=== PATIENT | female | born 1955 | race Caucasian/White ===

== ENCOUNTER 2017-07-27 13:52 | Inpatient (IN) | payer OTHER ==
[2017-07-27] MEDS ORDERED: cefTRIAXone IN SWFI 1,000 MG/10 ML SYRINGE IVP STA (13:58)
[2017-07-27] MEDS ORDERED: AZITHROMYCIN 500 MG in SODIUM CHLORIDE 0.9% 250 ML IVPB STA (14:16)
--- NOTE | 2017-07-27 14:22 | ED ---
General Adult HPI - General Stated complaint: Fatigue Time Seen by Provider: 07/27/17 13:58 Source: patient, family (Daughter) Mode of arrival: EMS Limitations: no limitations - History of Present Illness Initial comments: Patient brought in by ambulance for fatigue. Patient lives at home alone, has a neighbor that checks on her regularly. Daughter bedside states neighbor encouraged her to come to the hospital last night, however patient refused. Today neighbor called EMS. EMS states they found patient lying in bed, soaked in her own urine. Patient appeared very fatigued, however was anal 4, without focal neuro deficits. EMS states patient had a bottle of amoxicillin at home, states recently treated for urinary tract infection. Patient denies any past medical history, denies any daily medications. Daughter bedside confirm she does not think patient is on daily medications. Patient complains of generalized fatigue, thirst. Patient denies any pain. Patient denies fevers, chills. Patient states she has not eaten in the past week. Has spent most of her time in bed over the past week. Patient admits to daily drinking approximately 6 beers a day, however states she has not drank any alcohol in the past 1 month. Patient is current smoker. Patient denies history of cardiac disease, history of A. fib. Per EMS patient's heart rate was 140-170, A. fib on EKG. Patient history limited by her fatigue, poor historian. Daughter at bedside states she does not see or talk to patient much, so she does not know her history well. - Related Data Home Medications Medication Instructions Recorded Confirmed Tolterodine Tartrate [Detrol LA] 2 mg PO DAILY 07/27/17 07/27/17 Vitamin B Complex 1 cap PO DAILY 07/27/17 07/27/17 Allergies Allergy/AdvReac Type Severity Reaction Status Date / Time No Known Allergies Allergy Verified 07/27/17 15:51 Review of Systems ROS Statement: Those systems with pertinent positive or pertinent negative responses have been documented in the HPI. ROS Other: All systems not noted in ROS Statement are negative. Constitutional: Reports: weakness (generalized). Denies: fever, chills Eyes: Denies: vision change ENT: Denies: ear pain, throat pain, congestion Respiratory: Reports: cough (nonproductive) Cardiovascular: Denies: chest pain, palpitations, edema, syncope Endocrine: Reports: fatigue, other (decreased urination) Gastrointestinal: Denies: abdominal pain, nausea, vomiting, diarrhea, constipation, melena Genitourinary: Reports: other (dec urination). Denies: urgency, dysuria, hematuria Skin: Denies: rash Neurological: Reports: weakness (generalized). Denies: headache, numbness, paresthesias, confusion General Exam - General Exam Comments Initial Comments: Patient laying in bed, appears fatigued, mildly ill. Alert, converses softly. General appearance: alert, in no apparent distress Head exam: Present: atraumatic, normocephalic Eye exam: Present: normal appearance, PERRL, EOMI ENT exam: Present: mucous membranes dry Neck exam: Present: normal inspection Respiratory exam: Present: rales, other (Course breath sounds bilaterally). Absent: respiratory distress, wheezes Cardiovascular Exam: Present: tachycardia, irregular rhythm GI/Abdominal exam: Present: soft. Absent: distended, tenderness, guarding, rebound, rigid Extremities exam: Present: normal inspection Back exam: Present: normal inspection Neurological exam: Present: alert, oriented X3, CN II-XII intact (Movements and sensation intact in all extremities. Patient is alert, oriented to name, month , living situation, date of ) Psychiatric exam: Present: normal affect, normal mood Skin exam: Present: warm, dry, intact, normal color. Absent: rash, cyanosis, erythema Course Vital Signs 07/27/17 07/27/17 07/27/17 14:05 14:13 14:15 Temperature 98.4 F Pulse Rate 166 H 144 H Pulse Rate [ 166 H [employer] ] Respiratory 98 H 16 Rate Blood Pressure 102/61 91/54 O2 Sat by Pulse 98 Oximetry 07/27/17 07/27/17 07/27/17 14:35 14:45 14:55 Temperature Pulse Rate 161 H 156 H 139 H Pulse Rate [ [employer] ] Respiratory 18 18 16 Rate Blood Pressure 94/59 88/57 89/52 O2 Sat by Pulse Oximetry 07/27/17 07/27/17 07/27/17 15:24 16:06 16:21 Temperature 98.7 F Pulse Rate 158 H 134 H 139 H Pulse Rate [ [employer] ] Respiratory 18 18 20 Rate Blood Pressure 93/55 84/53 81/51 O2 Sat by Pulse 91 L Oximetry Procedures - Central Line Placement Right IJ Consent Obtained: written consent Time Out Performed: Yes Patient Placed on Monitor/Pulse Ox: Yes MD Prep: mask, gown, gloves Central Line Prep: Povidone-Iodine 1% Local Anesthesia Used: Lidocaine 1% Ultrasound Used for Placement: Yes Central Line Lumen Inserted: triple Central Line Position: good blood return, all ports aspirated, flushed, capped, sutured in place with 3-0 nylon Dressing Applied: Tegaderm Post Procedure X-Ray: tip of catheter in good position Patient Tolerated Procedure: well Complications: none - Sepsis Sepsis Focused Exam #1 Time Sepsis Criteria Met: 16:15 Sepsis Focused Exam Complete: Yes Vital Signs & RN Notes Reviewed: Yes Capillary Refill: < 2 Seconds: Fingers, Toes Peripheral Pulses: Normal: Radial (R), Radial (L), Dorsalis Pedis (R), Dorsalis Pedis (L) Skin Color: Normal for Patient Respiratory Exam: rhonchi Cardiovascular Exam: tachycardia Medical Decision Making - Medical Decision Making Patient appears fatigued on arrival. Decreased oral intake recently. Complaining of thirst. Likely dehydration. Possible sepsis, this patient has history of possible recent urinary tract infection. Patient preflight really treated for UTI and possible community-acquired pneumonia given her cough. Patient tachycardic on arrival, low blood pressure, will continue with IV fluid boluses. We'll start Cardizem drip. Cardizem bolus held secondary to low blood pressure. The patient A&O x 4 on exam. Patient speech does appear fatigued, however is clear and appropriate. No focal neuro deficits appreciated on exam. Symmetrical facial movements, no facial droop. Patient denies falls or head trauma. No sign of trauma on exam. Daughter bedside does note patient is usually a heavy drinker, sometimes 6 large beers that were 10-12% ETOH each. States that if she doesn't drink beer then she drinks ice tea and vodka. Pt denies any drug use. Patient not tolerating Cardizem drip 2/2 lo, we'll continue with IV hydration. Patient with bilateral pneumonias on chest x-ray, sepsis protocol arty initiated , patient given azithromycin and Rocephin for possible [facility] pneumonia. Patient given 30 mL per KG fluid boluses, heart rate improved to 130s, however blood pressure remains [address] central line, start Levophed SPoke with intesivist Dr. De La Garza, updated patient condition results, agrees with ICU admission Spoke with admitting physician Dr. Wyatt, updated patient condition results, agrees with ICU admission, requests Zosyn antibiotics Patient daughter updated without results and plan. Central line placed without difficulty. Patient tolerated procedure well. Patient will be admitted to the intensive care unit at this time. . - Lab Data Result diagrams: 07/27/17 14:00 07/27/17 14:00 Lab Results 07/27/17 07/27/17 07/27/17 Range/Units 14:00 14:00 14:00 WBC 10.6 (3.8-10.6) k/uL RBC 4.99 (3.80-5.40) m/uL Hgb 16.6 H (11.4-16.0) gm/dL Hct 50.5 H (34.0-46.0) % MCV 101.2 H (80.0-100.0) fL MCH 33.3 (25.0-35.0) pg MCHC 32.9 (31.0-37.0) g/dL RDW 13.2 (11.5-15.5) % Plt Count 213 (150-450) k/uL Neutrophils % (Manual) 42 % Band Neutrophils % 53 % Lymphocytes % (Manual) 5 % Neutrophils # (Manual) 10.00 H (1.3-7.7) k/uL Lymphocytes # (Manual) 0.53 L (1.0-4.8) k/uL Nucleated RBCs 0 (0-0) /100 WBC Manual Slide Review Performed Toxic Granulation Present Toxic Vacuolation Present Large Platelets Present Polychromasia Present Macrocytosis Slight PT (9.0-12.0) sec INR (<1.2) APTT (22.0-30.0) sec Sodium 134 L (137-145) mmol/L Potassium 4.2 (3.5-5.1) mmol/L Chloride 91 L (98-107) mmol/L Carbon Dioxide 28 (22-30) mmol/L Anion Gap 15 mmol/L BUN 104 H* (7-17) mg/dL Creatinine 1.30 H (0.52-1.04) mg/dL Est GFR (MDRD) Af Amer 50 (>60 ml/min/1.73 sqM) Est GFR (MDRD) Non-Af 42 (>60 ml/min/1.73 sqM) Glucose 88 (74-99) mg/dL Plasma Lactic Acid Gasper 4.5 H* (0.7-2.0) mmol/L Calcium 9.3 (8.4-10.2) mg/dL Magnesium 2.3 (1.6-2.3) mg/dL Total Bilirubin 2.1 H (0.2-1.3) mg/dL AST 115 H (14-36) U/L ALT 39 (9-52) U/L Alkaline Phosphatase 63 (38-126) U/L Troponin I (0.000-0.034) ng/mL Total Protein 4.9 L (6.3-8.2) g/dL Albumin 2.5 L (3.5-5.0) g/dL Urine Color Urine Appearance (Clear) Urine pH (5.0-8.0) Ur Specific [place] (1.001-1.035) Urine Protein (Negative) Urine Glucose (UA) (Negative) Urine Ketones (Negative) Urine Blood (Negative) Urine Nitrite (Negative) Urine Bilirubin (Negative) Urine Urobilinogen (<2.0) mg/dL Ur Leukocyte Esterase (Negative) Urine RBC (0-5) /hpf Urine WBC (0-5) /hpf Ur Squamous Epith Cells (0-4) /hpf Amorphous Sediment (None) /hpf Hyaline Casts (0-2) /lpf Urine Mucus (None) /hpf Influenza Type A RNA (Not Detectd) Influenza Type B (PCR) (Not Detectd) 07/27/17 07/27/17 07/27/17 Range/Units 14:00 14:00 14:00 WBC (3.8-10.6) k/uL RBC (3.80-5.40) m/uL Hgb (11.4-16.0) gm/dL Hct (34.0-46.0) % MCV (80.0-100.0) fL MCH (25.0-35.0) pg MCHC (31.0-37.0) g/dL RDW (11.5-15.5) % Plt Count (150-450) k/uL Neutrophils % (Manual) % Band Neutrophils % % Lymphocytes % (Manual) % Neutrophils # (Manual) (1.3-7.7) k/uL Lymphocytes # (Manual) (1.0-4.8) k/uL Nucleated RBCs (0-0) /100 WBC Manual Slide Review Toxic Granulation Toxic Vacuolation Large Platelets Polychromasia Macrocytosis PT 10.1 (9.0-12.0) sec INR 1.0 (<1.2) APTT 22.8 (22.0-30.0) sec Sodium (137-145) mmol/L Potassium (3.5-5.1) mmol/L Chloride (98-107) mmol/L Carbon Dioxide (22-30) mmol/L Anion Gap mmol/L BUN (7-17) mg/dL Creatinine (0.52-1.04) mg/dL Est GFR (MDRD) Af Amer (>60 ml/min/1.73 sqM) Est GFR (MDRD) Non-Af (>60 ml/min/1.73 sqM) Glucose (74-99) mg/dL Plasma Lactic Acid Gas[place] (0.7-2.0) mmol/L Calcium (8.4-10.2) mg/dL Magnesium (1.6-2.3) mg/dL Total Bilirubin (0.2-1.3) mg/dL AST (14-36) U/L ALT (9-52) U/L Alkaline Phosphatase (38-126) U/L Troponin I 0.024 (0.000-0.034) ng/mL Total Protein (6.3-8.2) g/dL Albumin (3.5-5.0) g/dL Urine Color Dark Brown Urine Appearance Cloudy H (Clear) Urine pH 5.0 (5.0-8.0) Ur Specific [place] 1.017 (1.001-1.035) Urine Protein 1+ H (Negative) Urine Glucose (UA) Negative (Negative) Urine Ketones Negative (Negative) Urine Blood Negative (Negative) Urine Nitrite Negative (Negative) Urine Bilirubin 1+ H (Negative) Urine Urobilinogen 6.0 (<2.0) mg/dL Ur Leukocyte Esterase Negative (Negative) Urine RBC 1 (0-5) /hpf Urine WBC 2 (0-5) /hpf Ur Squamous Epith Cells 2 (0-4) /hpf Amorphous Sediment Rare H (None) /hpf Hyaline Casts 125 H (0-2) /lpf Urine Mucus Rare H (None) /hpf Influenza Type A RNA (Not Detectd) Influenza Type B (PCR) (Not Detectd) 07/27/17 Range/Units 14:20 WBC (3.8-10.6) k/uL RBC (3.80-5.40) m/uL Hgb (11.4-16.0) gm/dL Hct (34.0-46.0) % MCV (80.0-100.0) fL MCH (25.0-35.0) pg MCHC (31.0-37.0) g/dL RDW (11.5-15.5) % Plt Count (150-450) k/uL Neutrophils % (Manual) % Band Neutrophils % % Lymphocytes % (Manual) % Neutrophils # (Manual) (1.3-7.7) k/uL Lymphocytes # (Manual) (1.0-4.8) k/uL Nucleated RBCs (0-0) /100 WBC Manual Slide Review Toxic Granulation Toxic Vacuolation Large Platelets Polychromasia Macrocytosis PT (9.0-12.0) sec INR (<1.2) APTT (22.0-30.0) sec Sodium (137-145) mmol/L Potassium (3.5-5.1) mmol/L Chloride (98-107) mmol/L Carbon Dioxide (22-30) mmol/L Anion Gap mmol/L BUN (7-17) mg/dL Creatinine (0.52-1.04) mg/dL Est GFR (MDRD) Af Amer (>60 ml/min/1.73 sqM) Est GFR (MDRD) Non-Af (>60 ml/min/1.73 sqM) Glucose (74-99) mg/dL Plasma Lactic Acid Gasper (0.7-2.0) mmol/L Calcium (8.4-10.2) mg/dL Magnesium (1.6-2.3) mg/dL Total Bilirubin (0.2-1.3) mg/dL AST (14-36) U/L ALT (9-52) U/L Alkaline Phosphatase (38-126) U/L Troponin I (0.000-0.034) ng/mL Total Protein (6.3-8.2) g/dL Albumin (3.5-5.0) g/dL Urine Color Urine Appearance (Clear) Urine pH (5.0-8.0) Ur Specific [place] (1.001-1.035) Urine Protein (Negative) Urine Glucose (UA) (Negative) Urine Ketones (Negative) Urine Blood (Negative) Urine Nitrite (Negative) Urine Bilirubin (Negative) Urine Urobilinogen (<2.0) mg/dL Ur Leukocyte Esterase (Negative) Urine RBC (0-5) /hpf Urine WBC (0-5) /hpf Ur Squamous Epith Cells (0-4) /hpf Amorphous Sediment (None) /hpf Hyaline Casts (0-2) /lpf Urine Mucus (None) /hpf Influenza Type A RNA Not Detected (Not Detectd) Influenza Type B (PCR) Not Detected (Not Detectd) Disposition Clinical Impression: Septic shock Disposition: ADMITTED IP TO THIS HOSP Condition: Good Referrals: Sloan Guzman MD [Primary Care Provider] - 1-2 days
[2017-07-27] MEDS: SODIUM CHLORIDE 0.9% 500 ML IV SCH ×2 (14:25→14:26)
[2017-07-27] MEDS: DILTIAZEM 125 MG in SODIUM CHLORIDE 0.9% 100 ML IV ONE ×2 (14:34→19:50)
[2017-07-27 14:57] LABS: HCT 50.5 % (34.0-46.0); HGB 16.6 gm/dL (11.4-16.0); MCH 33.3 pg (25.0-35.0); MCHC 32.9 g/dL (31.0-37.0); MCV 101.2 fL (80.0-100.0); Macrocytosis Slight; Mean Platelet Volume 9.8; Platelet Count 213 k/uL (150-450); RBC 4.99 m/uL (3.80-5.40); RDW 13.2 % (11.5-15.5); WBC 10.6 k/uL (3.8-10.6)
[2017-07-27 14:59] LABS: Partial Thromboplastin Time 22.8 sec (22.0-30.0); Prothrombin Time 10.1 sec (9.0-12.0)
[2017-07-27 15:00] LABS: Amorphous Sediment,Urine Rare /hpf; Appearance,Urine Cloudy (Clear); Bilirubin,Urine 1+ (Negative); Blood,Urine Negative (Negative); Color,Urine Dark Brown; Glucose,Urine (UA) Negative (Negative); Hyaline Casts,Urine 125 /lpf (0-2); Ketones,Urine Negative (Negative); Leukocyte Esterase,Urine Negative (Negative); Mucus,Urine Rare /hpf; Nitrite,Urine Negative (Negative); Protein,Urine 1+ (Negative); RBC,Urine 1 /hpf (0-5); Specific Gravity,Urine 1.017 (1.001-1.035); Squamous Epithelial Cell,Urine 2 /hpf (0-4); WBC,Urine 2 /hpf (0-5)
[2017-07-27 15:02] LABS: Albumin 2.5 g/dL (3.5-5.0); Calcium 9.3 mg/dL (8.4-10.2); Magnesium 2.3 mg/dL (1.6-2.3); Potassium 4.2 mmol/L (3.5-5.1); Total Bilirubin 2.1 mg/dL (0.2-1.3); Total Protein 4.9 g/dL (6.3-8.2)
[2017-07-27 15:14] LABS: Band Neutrophils % 53 %; Large Platelets Present; Lymphocytes # (M) 0.53 k/uL (1.0-4.8); Neutrophils % (M) 42 %; Nucleated Red Blood Cells 0 /100 WBC (0-0); Polychromasia Present; Total Cells Counted 200; Toxic Granulation Present; Toxic Vacuolation Present
[2017-07-27] MEDS ORDERED: SODIUM CHLORIDE 0.9% 1,000 ML IV STA (15:17)
[2017-07-27] MEDS: SODIUM CHLORIDE 0.9% 1,000 ML IV STA ×3 (15:20→19:50)
--- NOTE | 2017-07-27 15:40 | XR ---
EXAMINATION TYPE: XR chest 1V portable DATE OF EXAM: 07/27/2017 COMPARISON: 05/28/2013 INDICATION: Fever weakness TECHNIQUE: Single frontal view of the chest is obtained. FINDINGS: The heart size is normal. The pulmonary vasculature is normal. Bibasilar infiltrates are present. Small posterior right infiltrate is present. A larger consolidatio n is within the lingula. Old right rib fractures are evident. IMPRESSION: 1. Bibasilar infiltrates within the lingula and posterior medial right lower lobe.
--- NOTE | 2017-07-27 15:41 | CT ---
EXAMINATION TYPE: CT brain wo con DATE OF EXAM: 07/27/2017 COMPARISON: 07/29/2012 INDICATION: Confusion and weakness. DLP: 1012.7 mGycm, Automated exposure control for dose reduction was used. CONTRAST: None CT of the brain is performed utilizing 3 mm thick sections through the posterior fossa and 3 mm thick sections through the remaining calvarium. Study is performed within 24 hours of arrival to the hosp ital. No abnormal hyperdensity is present to suggest an acute intracranial hemorrhage. No mass lesion is evident. No acute infarcts are evident. Periventricular white matter hypodensity is present, likely on the bas is of confluent white matter ischemic type changes. Ventricles are mildly prominent for the patient age. Sulci appear appropriate for the patient age. N o hydrocephalus is evident. Paranasal sinuses and mastoid air cells within the [id number] are clear. IMPRESSIONS: 1. Periventricular white matter ischemic changes and mild atrophy.
[2017-07-27] MEDS ORDERED: HEPARIN SODIUM,PORCINE 5,000 UNIT/ML 1 ML VIAL IV STA (16:02)
[2017-07-27] MEDS ORDERED: PIPERACILLIN-TAZOBACTAM 3.375 GM in DEXTROSE/WATER 1 50ML.BAG IVPB STA (17:01)
[2017-07-27] MEDS: NOREPINEPHRIN 4 MG-0.9% NS PMX 4 MG/250 ML ML IV SCH ×2 (17:27→19:49)
[2017-07-27] MEDS: HEPARIN SOD,PORK IN 0.45% NACL 25,000 UNIT in 0.45% NACL 1 500ML.BAG IV SCH ×2 (17:30→19:48)
[2017-07-27] MEDS ORDERED: ETOMIDATE 2 MG/ML 10 ML VIAL IVP STA (17:59)
[2017-07-27 18:07] LABS: ABG Base Excess -5.8 mmol/L; ABG HCO3 23 mmol/L (21-25); ABG Oxygen Saturation 79.9 % (94-97); ABG PCO2 69 mmHg (35-45); ABG PO2 59 mmHg (83-108); ABG TCO2 25 mmol/L (19-24)
--- NOTE | 2017-07-27 18:08 | ED ---
Medical Decision Making - Lab Data Result diagrams: 07/27/17 14:00 07/27/17 14:00 Lab Results 07/27/17 07/27/17 07/27/17 Range/Units 14:00 14:00 14:00 WBC 10.6 (3.8-10.6) k/uL RBC 4.99 (3.80-5.40) m/uL Hgb 16.6 H (11.4-16.0) gm/dL Hct 50.5 H (34.0-46.0) % MCV 101.2 H (80.0-100.0) fL MCH 33.3 (25.0-35.0) pg MCHC 32.9 (31.0-37.0) g/dL RDW 13.2 (11.5-15.5) % Plt Count 213 (150-450) k/uL Neutrophils % (Manual) 42 % Band Neutrophils % 53 % Lymphocytes % (Manual) 5 % Neutrophils # (Manual) 10.00 H (1.3-7.7) k/uL Lymphocytes # (Manual) 0.53 L (1.0-4.8) k/uL Nucleated RBCs 0 (0-0) /100 WBC Manual Slide Review Performed Toxic Granulation Present Toxic Vacuolation Present Large Platelets Present Polychromasia Present Macrocytosis Slight PT (9.0-12.0) sec INR (<1.2) APTT (22.0-30.0) sec Sodium 134 L (137-145) mmol/L Potassium 4.2 (3.5-5.1) mmol/L Chloride 91 L (98-107) mmol/L Carbon Dioxide 28 (22-30) mmol/L Anion Gap 15 mmol/L BUN 104 H* (7-17) mg/dL Creatinine 1.30 H (0.52-1.04) mg/dL Est GFR (MDRD) Af Amer 50 (>60 ml/min/1.73 sqM) Est GFR (MDRD) Non-Af 42 (>60 ml/min/1.73 sqM) Glucose 88 (74-99) mg/dL Plasma Lactic Acid Gasper 4.5 H* (0.7-2.0) mmol/L Calcium 9.3 (8.4-10.2) mg/dL Magnesium 2.3 (1.6-2.3) mg/dL Total Bilirubin 2.1 H (0.2-1.3) mg/dL AST 115 H (14-36) U/L ALT 39 (9-52) U/L Alkaline Phosphatase 63 (38-126) U/L Troponin I (0.000-0.034) ng/mL Total Protein 4.9 L (6.3-8.2) g/dL Albumin 2.5 L (3.5-5.0) g/dL Urine Color Urine Appearance (Clear) Urine pH (5.0-8.0) Ur Specific [place] (1.001-1.035) Urine Protein (Negative) Urine Glucose (UA) (Negative) Urine Ketones (Negative) Urine Blood (Negative) Urine Nitrite (Negative) Urine Bilirubin (Negative) Urine Urobilinogen (<2.0) mg/dL Ur Leukocyte Esterase (Negative) Urine RBC (0-5) /hpf Urine WBC (0-5) /hpf Ur Squamous Epith Cells (0-4) /hpf Amorphous Sediment (None) /hpf Hyaline Casts (0-2) /lpf Urine Mucus (None) /hpf Influenza Type A RNA (Not Detectd) Influenza Type B (PCR) (Not Detectd) 07/27/17 07/27/17 07/27/17 Range/Units 14:00 14:00 14:00 WBC (3.8-10.6) k/uL RBC (3.80-5.40) m/uL Hgb (11.4-16.0) gm/dL Hct (34.0-46.0) % MCV (80.0-100.0) fL MCH (25.0-35.0) pg MCHC (31.0-37.0) g/dL RDW (11.5-15.5) % Plt Count (150-450) k/uL Neutrophils % (Manual) % Band Neutrophils % % Lymphocytes % (Manual) % Neutrophils # (Manual) (1.3-7.7) k/uL Lymphocytes # (Manual) (1.0-4.8) k/uL Nucleated RBCs (0-0) /100 WBC Manual Slide Review Toxic Granulation Toxic Vacuolation Large Platelets Polychromasia Macrocytosis PT 10.1 (9.0-12.0) sec INR 1.0 (<1.2) APTT 22.8 (22.0-30.0) sec Sodium (137-145) mmol/L Potassium (3.5-5.1) mmol/L Chloride (98-107) mmol/L Carbon Dioxide (22-30) mmol/L Anion Gap mmol/L BUN (7-17) mg/dL Creatinine (0.52-1.04) mg/dL Est GFR (MDRD) Af Amer (>60 ml/min/1.73 sqM) Est GFR (MDRD) Non-Af (>60 ml/min/1.73 sqM) Glucose (74-99) mg/dL Plasma Lactic Acid Gasper (0.7-2.0) mmol/L Calcium (8.4-10.2) mg/dL Magnesium (1.6-2.3) mg/dL Total Bilirubin (0.2-1.3) mg/dL AST (14-36) U/L ALT (9-52) U/L Alkaline Phosphatase (38-126) U/L Troponin I 0.024 (0.000-0.034) ng/mL Total Protein (6.3-8.2) g/dL Albumin (3.5-5.0) g/dL Urine Color Dark Brown Urine Appearance Cloudy H (Clear) Urine pH 5.0 (5.0-8.0) Ur Specific [place] 1.017 (1.001-1.035) Urine Protein 1+ H (Negative) Urine Glucose (UA) Negative (Negative) Urine Ketones Negative (Negative) Urine Blood Negative (Negative) Urine Nitrite Negative (Negative) Urine Bilirubin 1+ H (Negative) Urine Urobilinogen 6.0 (<2.0) mg/dL Ur Leukocyte Esterase Negative (Negative) Urine RBC 1 (0-5) /hpf Urine WBC 2 (0-5) /hpf Ur Squamous Epith Cells 2 (0-4) /hpf Amorphous Sediment Rare H (None) /hpf Hyaline Casts 125 H (0-2) /lpf Urine Mucus Rare H (None) /hpf Influenza Type A RNA (Not Detectd) Influenza Type B (PCR) (Not Detectd) 07/27/17 Range/Units 14:20 WBC (3.8-10.6) k/uL RBC (3.80-5.40) m/uL Hgb (11.4-16.0) gm/dL Hct (34.0-46.0) % MCV (80.0-100.0) fL MCH (25.0-35.0) pg MCHC (31.0-37.0) g/dL RDW (11.5-15.5) % Plt Count (150-450) k/uL Neutrophils % (Manual) % Band Neutrophils % % Lymphocytes % (Manual) % Neutrophils # (Manual) (1.3-7.7) k/uL Lymphocytes # (Manual) (1.0-4.8) k/uL Nucleated RBCs (0-0) /100 WBC Manual Slide Review Toxic Granulation Toxic Vacuolation Large Platelets Polychromasia Macrocytosis PT (9.0-12.0) sec INR (<1.2) APTT (22.0-30.0) sec Sodium (137-145) mmol/L Potassium (3.5-5.1) mmol/L Chloride (98-107) mmol/L Carbon Dioxide (22-30) mmol/L Anion Gap mmol/L BUN (7-17) mg/dL Creatinine (0.52-1.04) mg/dL Est GFR (MDRD) Af Amer (>60 ml/min/1.73 sqM) Est GFR (MDRD) Non-Af (>60 ml/min/1.73 sqM) Glucose (74-99) mg/dL Plasma Lactic Acid [place] (0.7-2.0) mmol/L Calcium (8.4-10.2) mg/dL Magnesium (1.6-2.3) mg/dL Total Bilirubin (0.2-1.3) mg/dL AST (14-36) U/L ALT (9-52) U/L Alkaline Phosphatase (38-126) U/L Troponin I (0.000-0.034) ng/mL Total Protein (6.3-8.2) g/dL Albumin (3.5-5.0) g/dL Urine Color Urine Appearance (Clear) Urine pH (5.0-8.0) Ur Specific [place] (1.001-1.035) Urine Protein (Negative) Urine Glucose (UA) (Negative) Urine Ketones (Negative) Urine Blood (Negative) Urine Nitrite (Negative) Urine Bilirubin (Negative) Urine Urobilinogen (<2.0) mg/dL Ur Leukocyte Esterase (Negative) Urine RBC (0-5) /hpf Urine WBC (0-5) /hpf Ur Squamous Epith Cells (0-4) /hpf Amorphous Sediment (None) /hpf Hyaline Casts (0-2) /lpf Urine Mucus (None) /hpf Influenza Type A RNA Not Detected (Not Detectd) Influenza Type B (PCR) Not Detected (Not Detectd) Disposition Clinical Impression: Septic shock Disposition: ADMITTED IP TO THIS [facility] Condition: Good Procedures - Intubation Time Out Performed: Yes Sedative: Etomidate Paralytic: Succinylcholine Laryngoscope: Ngozi Size: 4 ET Tube Size: 8 ET Tube Uncuffed: No Tube Secured Depth (cm): 23 Tube Secured Location: lips Tube Placement Confirmation: visualized tube passing through cords, equal breath sounds bilaterally, no breath sounds over epigastrium Patient Tolerated Procedure: well Intubation Complications: none - Sepsis Sepsis Focused Exam #1 Time Sepsis Criteria Met: 16:15
[2017-07-27 18:09] LABS: ABG PH 7.13 (7.35-7.45)
[2017-07-27] MEDS ORDERED: SUCCINYLCHOLINE CHLORIDE VIAL 200 MG/10 ML VIAL IV STA (19:00)
--- NOTE | 2017-07-27 19:11 | XR ---
EXAMINATION TYPE: XR chest 1V portable DATE OF EXAM: 07/27/2017 COMPARISON: Same date earlier exam INDICATION: Pain ET NG tube placement, patient and sepsis, volume overload TECHNIQUE: Single frontal view of the chest is obtained. FINDINGS: The heart size is normal. The pulmonary vasculature is normal. Left lower lobe and right lower lobe infiltrates are increasing from prior. No pleural effusion is ev ident. Patient Central venous catheter is stable. Endotracheal tube is in place the tip in the proximal right bronchus. In conversation with the emerge ncy room physician, this was pulled back approximately 3 to 4 cm. Nasogastric tube transverses the th orax, tip is in the left upper quadrant of the abdomen. IMPRESSION: 1. Endotracheal tube tip within the proximal right bronchus. This was pulled back following this imag e. 2. Nasogastric tube tip within the left upper quadrant of the abdomen. 3. Worsening bibasilar infiltrates.
[2017-07-27] MEDS ORDERED: PROPOFOL 100 ML IV ONE (19:28)
[2017-07-27 19:40] LABS: Glucose,Whole Blood 60 mg/dL (75-99)
[2017-07-27] MEDS ORDERED: DEXTROSE 50%-WATER 50 ML SYRINGE IVP ONE (19:43)
--- NOTE | 2017-07-27 19:53 | XR ---
EXAMINATION TYPE: XR chest 1V DATE OF EXAM: 07/27/2017 COMPARISON: NONE INDICATION: ET tube placement, adjustment, septic shock TECHNIQUE: Single frontal view of the chest is obtained. FINDINGS: The heart size is normal. The pulmonary vasculature is normal. Left mid and lower lobe consolidation appears somewhat denser. The right lower lobe consolidation is similar. The endotracheal tube is been pulled back with the tip approximately 2.3 cm above the kandi. This ca n come back somewhat further as well. The central venous catheter tip within the superior vena cava r egion is stable. The nasogastric tube tip is in the left upper quadrant of the abdomen. IMPRESSION: 1. Dense infiltrates within the left lower lobe and medial right lower lobe. 2. Endotracheal tube is been pulled back. This is at the lower extent of acceptable positioning and c an be pulled back 2 cm for adjustment.
[2017-07-27 20:15] LABS: Glucose,Whole Blood 105 mg/dL (75-99)
[2017-07-27 20:42] LABS: ABG Base Excess -8.2 mmol/L; ABG HCO3 21 mmol/L (21-25); ABG Oxygen Saturation 90.9 % (94-97); ABG PCO2 58 mmHg (35-45); ABG PO2 82 mmHg (83-108); ABG TCO2 22 mmol/L (19-24)
[2017-07-27 20:46] LABS: ABG PH 7.16 (7.35-7.45)
--- NOTE | 2017-07-27 21:15 | XR ---
EXAMINATION TYPE: XR chest 1V portable DATE OF EXAM: 07/27/2017 COMPARISON: NONE INDICATION: Pain Central line placement TECHNIQUE: Single frontal view of the chest is obtained. FINDINGS: The heart size is normal. The pulmonary vasculature is normal. There is worsening infiltrate through the left lung. There is insertion of a right central venous catheter with the tip in the superior vena cava region. No pneumothorax is evident. EKG leads overlie the chest. Right lower lobe infiltrate remains present. Note is made of a chronic rotator cuff tear on the right. There is likely a chronic rotator cuff tear on the left as well. IMPRESSION: 1. Worsening bibasilar infiltrates extending into the left upper lung field. 2. Right central venous catheter tip in the superior vena cava region. No pneumothorax is evident.
[2017-07-27] MEDS ORDERED: NALOXONE 0.4 MG/ML 1 ML VIAL IV PRN (21:51)
[2017-07-27] MEDS ORDERED: SODIUM CHLORIDE 0.9% 1,000 ML IV ONE (21:59)
[2017-07-27] MEDS: fentaNYL (PF) 2,500 MCG in SODIUM CHLORIDE 0.9% 200 ML IV SCH (21:59)
[2017-07-27] MEDS: SODIUM CHLORIDE 0.9% 1,000 ML IV SCH ×2 (22:03→23:39)
[2017-07-27] MEDS: PROPOFOL 1,000 MG in EMPTY BAG 1 BAG IV SCH (22:04)
[2017-07-27 22:19] VITALS: BMI 18.6
[2017-07-27] MEDS ORDERED: SODIUM CHLORIDE 0.9% 1,000 ML with MVI, ADULT NO.4 WITH VIT K 10 ML, THIAMINE 100 MG, F... IV ONE ×4 (22:58)
[2017-07-27] MEDS: NOREPINEPHRIN 16 MG-0.9%NS PMX 16 MG/250 ML ML IV SCH (23:39)
[2017-07-28] MEDS: DILTIAZEM 125 MG in SODIUM CHLORIDE 0.9% 100 ML IV ONE (01:01)
[2017-07-28 02:22] LABS: ABG Base Excess -12.1 mmol/L; ABG HCO3 17 mmol/L (21-25); ABG Oxygen Saturation 90.1 % (94-97); ABG PCO2 53 mmHg (35-45); ABG PO2 75 mmHg (83-108); ABG TCO2 19 mmol/L (19-24)
[2017-07-28 02:30] LABS: ABG PH 7.12 (7.35-7.45)
[2017-07-28] MEDS: DEXTROSE 5%-0.45% NACL 1,000 ML with SODIUM BICARB (1 MEQ/ML) 150 ML IV SCH ×6 (03:19→22:49)
[2017-07-28] MEDS: SODIUM CHLORIDE 0.9% 1,000 ML IV SCH ×4 (03:20→03:31)
[2017-07-28] MEDS: SODIUM CHLORIDE 0.9% 99 ML with VASOPRESSIN 20 UNIT IV SCH ×6 (03:29→21:30)
[2017-07-28 04:36] LABS: HCT 45.9 % (34.0-46.0); HGB 13.8 gm/dL (11.4-16.0); Hypochromasia Slight; MCH 32.5 pg (25.0-35.0); MCHC 30.1 g/dL (31.0-37.0); Macrocytosis Moderate; Mean Platelet Volume 9.7; Platelet Count 138 k/uL (150-450); RBC 4.26 m/uL (3.80-5.40); RDW 13.4 % (11.5-15.5)
[2017-07-28 04:37] LABS: MCV 107.7 fL (80.0-100.0)
[2017-07-28 04:49] LABS: Band Neutrophils % 58 %; INR 1.1 (<1.2); Monocytes # (M) 0.14 k/uL (0-1.0); Neutrophils % (M) 36 %; Nucleated Red Blood Cells 2 /100 WBC (0-0); Partial Thromboplastin Time 30.4 sec (22.0-30.0); Prothrombin Time 10.5 sec (9.0-12.0); Total Cells Counted 100
[2017-07-28 04:50] LABS: Lymphocytes # (M) 0.71 k/uL (1.0-4.8); WBC 14.1 k/uL (3.8-10.6)
[2017-07-28 05:02] LABS: Albumin 1.4 g/dL (3.5-5.0); Magnesium 1.7 mg/dL (1.6-2.3); Phosphorus 3.7 mg/dL (2.5-4.5); Potassium 3.7 mmol/L (3.5-5.1); Total Bilirubin 0.8 mg/dL (0.2-1.3); Total Protein 3.1 g/dL (6.3-8.2)
[2017-07-28 05:07] LABS: Calcium 5.9 mg/dL (8.4-10.2)
--- NOTE | 2017-07-28 07:35 | XR ---
EXAMINATION TYPE: XR chest 1V portable DATE OF EXAM: 07/28/2017 Comparison: 07/27/2017 Clinical History: 62-year-old female Tube placement Findings: Heart margins are obscured by adjacent pleural parenchymal opacities. ET tube satisfactory. NG tube c ourses below the diaphragm. Right IJ CVC tip in lower SVC. Dense left mid and lower lung opacities an d right basilar opacities persist. Densities are worsened from prior exam. Small effusions also suspe cted. Impression: Worsening left greater than right bibasilar consolidation and effusions. Infiltrates on the left exte nd up to the mid lung level.
[2017-07-28] MEDS ORDERED: HEPARIN SODIUM,PORCINE 5,000 UNIT/ML 1 ML VIAL IV PRN (07:56)
[2017-07-28] MEDS ORDERED: HEPARIN SODIUM,PORCINE 5,000 UNIT/ML 1 ML VIAL IV ONE (07:56)
[2017-07-28] MEDS ORDERED: POTASSIUM CHLORIDE ORAL LIQUID 40 MEQ/30 ML CUP NG-TUBE SCH (08:00)
[2017-07-28 08:41] LABS: Amphetamine Screen,Urine Not Detected (NotDetected); Barbiturate Screen,Urine Not Detected (NotDetected); Benzodiazepines Screen,Urine Not Detected (NotDetected); Cocaine Screen,Urine Not Detected (NotDetected); Methadone Screen, Urine Not Detected (NotDetected); Opiate Screen,Urine Not Detected (NotDetected); Oxycodone Screen, Urine Not Detected (NotDetected); Phencyclidine Screen,Urine Not Detected (NotDetected); Tricyclic Antidepressant,Urine Not Detected (NotDetected); Urn Cannabinoid Scrn Detected (NotDetected)
[2017-07-28] MEDS: PANTOPRAZOLE 40 MG/10 ML VIAL IV SCH (08:50)
[2017-07-28] MEDS: CHLORHEXIDINE GLUCONATE 15 ML CUP MUCOUS MEM SCH ×2 (08:50→21:27)
[2017-07-28] MEDS: CALCIUM GLUCONATE 1,000 MG in SODIUM CHLORIDE 0.9% 100 ML IVPB SCH ×2 (08:52→21:27)
[2017-07-28] MEDS: MAGNESIUM SULFATE-D5W PMX 1 GM in DEXTROSE/WATER 1 100ML.BAG IVPB SCH ×2 (08:52→10:08)
[2017-07-28 09:16] LABS: ABG Base Excess -12.7 mmol/L; ABG HCO3 17 mmol/L (21-25); ABG Oxygen Saturation 93.4 % (94-97); ABG PCO2 55 mmHg (35-45); ABG PO2 76 mmHg (83-108); ABG TCO2 19 mmol/L (19-24)
--- NOTE | 2017-07-28 10:00 | ECHOF ---
Referral Reason:afib rvr MEASUREMENTS -------- HEIGHT: 170.2 cm WEIGHT: 53.5 kg BP: 89/57 IVSd: 1.1 cm (0.6 - 1.1) LVIDd: 2.2 cm (3.9 - 5.3) LVPWd: 1.2 cm (0.6 - 1.1) IVSs: 1.6 cm LVIDs: 1.2 cm LVPWs: 1.7 cm LAESV Index (A-L): 20.26 ml/m Ao Diam: 3.2 cm (2.0 - 3.7) AV Cusp: 1.9 cm (1.5 - 2.6) LA Diam: 3.9 cm (2.7 - 3.8) MV EXCURSION: 20.043 mm (> 18.000) MV EF SLOPE: 204 mm/s (70 - 150) EPSS: 0.3 cm RAP: 20.00 mmHg RVSP: 49.52 mmHg FINDINGS -------- Atrial fibrillation. This was a technically good study. The left ventricular size is normal. There is borderline concentric left ventricular hypertrophy. Overall left ventricular systolic function is normal with, an EF between 55 - 60 %. The right ventricle is normal in size and function. The left atrium is normal in size. The right atrium is normal in size. Aortic valve is trileaflet and is mildly thickened. The mitral valve leaflets are mildly thickened. Mild mitral regurgitation is present. Moderate to severe tricuspid regurgitation present. There is mild to moderate pulmonary hypertensio n. The right ventricular systolic pressure, as measured by Doppler, is 49.52mmHg. There is no pulmonic regurgitation present. The aortic root size is normal. The inferior vena cava is dilated with no significant inspiratory collapse which is consistent estima julissa right atrial pressure of >20 mmHg. There is a trivial pericardial effusion present. CONCLUSIONS -------- 1. Atrial fibrillation. 2. This was a technically good study. 3. The left ventricular size is normal. 4. There is borderline concentric left ventricular hypertrophy. 5. Overall left ventricular systolic function is normal with, an EF between 55 - 60 %. 6. The left atrium is normal in size. 7. Aortic valve is trileaflet and is mildly thickened. 8. The mitral valve leaflets are mildly thickened. 9. Mild mitral regurgitation is present. 10. Moderate to severe tricuspid regurgitation present. 11. There is mild to moderate pulmonary hypertension. 12. The right ventricular systolic pressure, as measured by Doppler, is 49.52mmHg. 13. There is no pulmonic regurgitation present. 14. The aortic root size is normal. 15. The inferior vena cava is dilated with no significant inspiratory collapse which is consistent es timated right atrial pressure of >20 mmHg. 16. There is a trivial pericardial effusion present. SEEING EYE DOG TEACHER: Rocio Coronel RDCS
--- NOTE | 2017-07-28 10:31 | P.CNPUL ---
History of Present Illness Consult date: 07/28/17 Reason for consult: other Chief complaint: Mental status changes, respiratory failure, sepsis, chronic liver disease History of present illness: Consult dated 07/28/2017 This is a 62-year-old female who was apparently evaluated in the emergency room. The patient apparently is a heavy drinker is been drinking up until the time of admission. EMS was called. The patient was lying in bed soaked in her own urine. She apparently was very weak and fatigue. The patient apparently was recently treated for urinary tract infection at home with amoxicillin. The patient had empty alcohol bottles strength throughout the house. Anyway, she was being admitted to the ICU because of her alcohol abuse and possible sepsis with possible pneumonia and new onset atrial fibrillation. Subsequent to be talking to the ER doctor, the patient apparently developed agonal respirations and was intubated. I do nothing about that. The patient was since then up into the ICU. I was supposed notify the patient was in the ICU on the ventilator by Bart, the nighttime nurse. Needless to say I was upset about this and I did call the ER doctor to let him know that this should never happened. He apologized. We moved on. Anyway, currently the patient's in dire straits. I did have a long conversation with the family. I spent more than 40 minutes with this family and patient thus far. The patient's currently on the assist control mode with a rate of 26 a tidal volume of 350 and FiO2 of 100% and PEEP of 5. Arterial blood gases show a PaO2 of 76 a PaCO2 of 55 and a pH of 7.10. The patient's on a dextrose IV with 3 amps of sodium bicarbonate at 1 25 mL an hour, norepinephrine, and 50 mcg/m, vasopressin at 0.03 units per minute, heparin via weightbase protocol for the atrial fibrillation propofol at 10 mics per kilogram per minute and MVI at 100 mL an hour. After talking to the daughter Rae, who is a nurse at [employer], they want to give the patient a bit more time. Apparently some outside family members have to come in. Review of Systems ROS unobtainable: due to endotracheal tube Past Medical History Past Medical History: No Reported History Additional Past Medical History / Comment(s): Arthritis History of Any Multi-Drug Resistant Organisms: None Reported Additional Past Surgical History / Comment(s): Lt fx Past Anesthesia/Blood Transfusion Reactions: No Reported Reaction Past Psychological History: No Psychological Hx Reported Smoking Status: Current every day smoker Past Alcohol Use History: Heavy Past Drug Use History: None Reported Medications and Allergies Home Medications Medication Instructions Recorded Confirmed Type Tolterodine Tartrate [Detrol LA] 2 mg PO DAILY 07/27/17 07/27/17 History Vitamin B Complex 1 cap PO DAILY 07/27/17 07/27/17 History Allergies Allergy/AdvReac Type Severity Reaction Status Date / Time No Known Allergies Allergy Verified 07/27/17 15:51 Physical Exam Osteopathic Statement: *. No significant issues noted on an osteopathic structural exam other than those noted in the History and Physical/Consult. Vitals: Vital Signs Temp Pulse Pulse Resp BP Pulse Ox 07/28/17 09:45 160 H 26 H 96/65 90 L 07/28/17 09:30 132 H 26 H 96/65 79 L 07/28/17 09:15 142 H 26 H 96/65 80 L 07/28/17 09:00 155 H 27 H 96/65 84 L 07/28/17 08:45 136 H 27 H 96/65 78 L 07/28/17 08:30 146 H 26 H 96/65 78 L 07/28/17 08:15 137 H 26 H 96/65 77 L 07/28/17 08:00 102 F H 146 H 28 H 96/65 79 L 07/28/17 07:45 159 H 30 H 112/82 76 L 07/28/17 07:30 134 H 26 H 112/82 74 L 07/28/17 07:15 152 H 29 H 106/71 77 L 07/28/17 07:00 137 H 28 H 109/72 90 L 07/28/17 06:45 137 H 27 H 110/59 90 L 07/28/17 06:30 127 H 38 H 119/74 90 L 07/28/17 06:15 139 H 31 H 126/67 95 07/28/17 06:00 139 H 30 H 112/94 90 L 07/28/17 05:45 127 H 30 H 114/75 98 07/28/17 05:30 142 H 31 H 126/67 92 L 07/28/17 05:15 133 H 38 H 120/75 91 L 07/28/17 05:00 8 L 33 H 110/76 89 L 07/28/17 04:45 56 L 31 H 95/78 91 L 07/28/17 04:30 78 28 H 96/65 92 L 07/28/17 04:15 121 H 35 H 109/68 92 L 07/28/17 04:00 100 F H 102 H 104 H 31 H 109/67 92 L 07/28/17 03:45 126 H 31 H 108/56 92 L 07/28/17 03:30 100 29 H 107/55 93 L 07/28/17 03:15 134 H 26 H 92/63 93 L 07/28/17 03:00 113 H 26 H 87/58 93 L 07/28/17 02:45 115 H 33 H 104/52 93 L 07/28/17 02:30 115 H 37 H 93/62 88 L 07/28/17 02:15 94 32 H 92/51 87 L 07/28/17 02:00 97 28 H 87/50 88 L 07/28/17 01:45 55 L 28 H 83/49 89 L 07/28/17 01:30 98 33 H 90/54 88 L 07/28/17 01:15 115 H 25 H 90/53 89 L 07/28/17 01:00 111 H 31 H 96/53 90 L 07/28/17 00:45 98 30 H 82/50 91 L 07/28/17 00:30 109 H 30 H 86/58 91 L 07/28/17 00:15 108 H 27 H 96/57 91 L 07/28/17 00:00 98.4 F 110 H 104 H 22 90/41 92 L 07/27/17 23:45 111 H 22 95/54 94 L 07/27/17 23:30 118 H 22 86/52 94 L 07/27/17 23:15 96 22 94/87 94 L 07/27/17 23:00 103 H 22 92/51 97 07/27/17 22:45 101 H 22 82/60 97 07/27/17 22:30 120 H 22 93/45 97 07/27/17 22:15 113 H 22 87/46 96 07/27/17 22:00 98 22 93/53 92 L 07/27/17 21:45 115 H 22 81/47 97 07/27/17 21:30 116 H 22 83/51 97 07/27/17 21:15 118 H 22 87/49 96 07/27/17 21:00 114 H 22 82/54 97 07/27/17 20:45 121 H 17 92/50 93 L 07/27/17 20:44 113 H 20 92/50 92 L 07/27/17 20:30 125 H 21 88/46 92 L 07/27/17 20:15 138 H 27 H 82/51 94 L 07/27/17 20:00 123 H 124 H 14 106/62 93 L 07/27/17 19:45 98.6 F 139 H 24 89/59 94 L 07/27/17 19:09 135 H 128/60 07/27/17 19:05 158 H 113/71 07/27/17 18:50 150 H 149/70 07/27/17 18:36 156 H 176/86 07/27/17 18:09 165 H 86/59 07/27/17 17:44 88/52 07/27/17 17:30 98.6 F 124 H 14 91 L 07/27/17 16:42 146 H 120 H 88/57 90 L 07/27/17 16:21 139 H 20 81/51 91 L 07/27/17 16:06 134 H 18 84/53 07/27/17 15:24 98.7 F 158 H 18 93/55 07/27/17 14:55 139 H 16 89/52 07/27/17 14:45 156 H 18 88/57 07/27/17 14:35 161 H 18 94/59 07/27/17 14:15 166 H 07/27/17 14:13 144 H 16 91/54 07/27/17 14:05 98.4 F 166 H 98 H 102/61 98 Intake and Output 07/27/17 07/28/17 07/28/17 22:59 06:59 14:59 Intake Total 3213.137 3641.929 923.713 Output Total 0 63 55 Balance 3213.137 3578.929 868.713 Intake: IV 3025.0 3425.0 775 0.9 3000 2400 Calcium Gluconate 1,000 100 mg In Sodium Chloride 0.9 % 100 ml @ 100 mls/hr IVPB BID [facility] Rx#: [id number] Dextrose 5%-0.45% NaCl 1, 500 375 000 ml @ 125 mls/hr IV . Q9H12M VANES[facility] with Sodium Bicarb (1 Meq/ml) 150 ml Rx#:[id number] Magnesium Sulfate-D5w Pmx 100 1 gm In Dextrose/Water 1 100ml.bag @ 100 mls/hr IVPB Q1H [facility] Rx#: [id number] Piperacillin-Tazobactam 3 25.0 25.0 .375 gm In Dextrose/Water 1 50ml.bag @ 12.5 mls/hr IVPB ONCE STA Rx#: [id number] Sodium Chloride 0.9% 1, 500 200 000 ml @ 100 mls/hr IV . Q10H7M ONE with Mvi, Adult No.4 with Vit K 10 ml with Thiamine 100 mg with Folic Acid 1 mg Rx#: [id number] Intake, IV Titration 188.137 216.929 148.713 Amount Diltiazem 125 mg In 39.75 98.083 Sodium Chloride 0.9% 100 ml @ 5 MG/HR 5 mls/hr IV .Q24H ONE Rx#:[id number] Heparin Sod,Pork in 0.45% 28.543 148.713 NaCl 25,000 unit In 0.45 % NaCl 1 500ml.bag @ 12 UNITS/KG/HR 12.41 mls/hr IV .Q24H [facility] Rx#: [id number] Norepinephrin 16 mg-0.9% 77.813 Ns Pmx 16 mg In 250 ml @ Titrate IV .Q0M [facility] Rx#: [id number] Norepinephrin 4 mg-0.9% 119.844 Ns Pmx 4 mg In 250 ml @ Titrate IV .Q0M [facility] Rx#: [id number] Propofol 1,000 mg In 41.033 Empty Bag 1 bag @ Titrate IV .Q0M [facility] Rx#: [id number] Output: Urine 0 63 55 Other: Voiding Method Indwelling Catheter Indwelling Catheter Weight 53.8 kg ABP, PAP, CO, CI - Last 8 Hours Arterial Blood Pressure 88/55 Arterial Blood Pressure 79/51 Arterial Blood Pressure 84/54 Arterial Blood Pressure 82/48 Arterial Blood Pressure 74/49 Arterial Blood Pressure 79/58 Arterial Blood Pressure 81/55 Arterial Blood Pressure 87/60 Arterial Blood Pressure 85/55 Arterial Blood Pressure 90/59 Arterial Blood Pressure 89/64 Arterial Blood Pressure 93/63 Arterial Blood Pressure 95/65 Arterial Blood Pressure 106/72 Arterial Blood Pressure 88/62 Arterial Blood Pressure 97/65 Arterial Blood Pressure 95/60 Arterial Blood Pressure 100/68 Arterial Blood Pressure 98/68 Arterial Blood Pressure 95/60 Arterial Blood Pressure 90/64 Arterial Blood Pressure 96/61 Arterial Blood Pressure 96/61 Arterial Blood Pressure 94/66 Arterial Blood Pressure 94/63 Arterial Blood Pressure 84/53 Arterial Blood Pressure 79/55 Arterial Blood Pressure 84/59 Arterial Blood Pressure 82/54 Arterial Blood Pressure 85/54 The patient's unresponsive. The patient has an orally placed endotracheal tube and NG tube. HEENT examination is grossly unremarkable. Mucous membranes are dry. No oral lesions. Neck supple. Full range of motion. No adenopathy thyromegaly or neck vein distention. Cardiovascular examination reveals irregular rhythm rate. S1-S2 normal. No S3 or S4. No discernible murmur noted. Heart rate about 125. Lungs reveal coarse expiratory rhonchi. Breath sounds are diminished. There are bibasilar crackles. Breath sounds are diminished throughout. Abdomen soft bowel sounds are heard. No masses or tenderness. Extremities are intact. No cyanosis clubbing or edema. Skin is without rash or lesion. Neurologic examination could not be adequately assessed Results - Laboratory Findings CBC and BMP: 07/28/17 04:16 07/28/17 04:16 ABG ABG pH 7.10 (7.35-7.45) L* 07/28/17 09:13 ABG pCO2 55 mmHg (35-45) H 07/28/17 09:13 ABG pO2 76 mmHg (83-108) L 07/28/17 09:13 ABG O2 Saturation 93.4 % (94-97) L 07/28/17 09:13 PT/INR, D-dimer PT 10.5 sec (9.0-12.0) 07/28/17 04:16 INR 1.1 (<1.2) 07/28/17 04:16 Abnormal lab findings: Abnormal Labs 07/27/17 07/27/17 07/27/17 14:00 14:00 14:00 WBC Hgb 16.6 H Hct 50.5 H MCV 101.2 H MCHC Plt Count Neutrophils # (Manual) 10.00 H Lymphocytes # (Manual) 0.53 L Nucleated RBCs APTT ABG pH ABG pCO2 ABG pO2 ABG HCO3 ABG Total CO2 ABG O2 Saturation ABG Lactic Acid Sodium 134 L Chloride 91 L Carbon Dioxide BUN 104 H* Creatinine 1.30 H POC Glucose (mg/dL) Plasma Lactic Acid Gasper 4.5 H* Calcium Total Bilirubin 2.1 H AST 115 H Total Protein 4.9 L Albumin 2.5 L Urine Appearance Urine Protein Urine Bilirubin Amorphous Sediment Hyaline Casts Urine Mucus U Marijuana (THC) Screen 07/27/17 07/27/17 07/27/17 14:00 14:21 18:02 WBC Hgb Hct MCV MCHC Plt Count Neutrophils # (Manual) Lymphocytes # (Manual) Nucleated RBCs APTT ABG pH 7.13 L* ABG pCO2 69 H ABG pO2 59 L ABG HCO3 ABG Total CO2 25 H ABG O2 Saturation 79.9 L ABG Lactic Acid Sodium Chloride Carbon Dioxide BUN Creatinine POC Glucose (mg/dL) Plasma Lactic Acid Gasper Calcium Total Bilirubin AST Total Protein Albumin Urine Appearance Cloudy H Urine Protein 1+ H Urine Bilirubin 1+ H Amorphous Sediment Rare H Hyaline Casts 125 H Urine Mucus Rare H U Marijuana (THC) Screen Detected H 07/27/17 07/27/17 07/27/17 19:37 20:11 20:13 WBC Hgb Hct MCV MCHC Plt Count Neutrophils # (Manual) Lymphocytes # (Manual) Nucleated RBCs APTT ABG pH ABG pCO2 ABG pO2 ABG HCO3 ABG Total CO2 ABG O2 Saturation ABG Lactic Acid Sodium Chloride Carbon Dioxide BUN Creatinine POC Glucose (mg/dL) 60 L 105 H Plasma Lactic Acid Gasper 3.0 H* Calcium Total Bilirubin AST Total Protein Albumin Urine Appearance Urine Protein Urine Bilirubin Amorphous Sediment Hyaline Casts Urine Mucus U Marijuana (THC) Screen 07/27/17 07/28/17 07/28/17 20:38 02:17 04:16 WBC 14.1 H Hgb Hct MCV 107.7 H D MCHC 30.1 L Plt Count 138 L Neutrophils # (Manual) 13.20 H Lymphocytes # (Manual) 0.71 L Nucleated RBCs 2 H APTT ABG pH 7.16 L* 7.12 L* ABG pCO2 58 H 53 H ABG pO2 82 L 75 L ABG HCO3 17 L ABG Total CO2 ABG O2 Saturation 90.9 L 90.1 L ABG Lactic Acid Sodium Chloride Carbon Dioxide BUN Creatinine POC Glucose (mg/dL) Plasma Lactic Acid Gasper Calcium Total Bilirubin AST Total Protein Albumin Urine Appearance Urine Protein Urine Bilirubin Amorphous Sediment Hyaline Casts Urine Mucus U Marijuana (THC) Screen 07/28/17 07/28/17 07/28/17 04:16 04:16 04:16 WBC Hgb Hct MCV MCHC Plt Count Neutrophils # (Manual) Lymphocytes # (Manual) Nucleated RBCs APTT 30.4 H ABG pH ABG pCO2 ABG pO2 ABG HCO3 ABG Total CO2 ABG O2 Saturation ABG Lactic Acid 1.9 H Sodium Chloride 114 H Carbon Dioxide 17 L BUN 74 H Creatinine 1.40 H POC Glucose (mg/dL) Plasma Lactic Acid Gasper Calcium 5.9 L* Total Bilirubin AST 87 H Total Protein 3.1 L Albumin 1.4 L Urine Appearance Urine Protein Urine Bilirubin Amorphous Sediment Hyaline Casts Urine Mucus U Marijuana (THC) Screen 07/28/17 09:13 WBC Hgb Hct MCV MCHC Plt Count Neutrophils # (Manual) Lymphocytes # (Manual) Nucleated RBCs APTT ABG pH 7.10 L* ABG pCO2 55 H ABG pO2 76 L ABG HCO3 17 L ABG Total CO2 ABG O2 Saturation 93.4 L ABG Lactic Acid Sodium Chloride Carbon Dioxide BUN Creatinine POC Glucose (mg/dL) Plasma Lactic Acid Gasper Calcium Total Bilirubin AST Total Protein Albumin Urine Appearance Urine Protein Urine Bilirubin Amorphous Sediment Hyaline Casts Urine Mucus U Marijuana (THC) Screen - Diagnostic Findings Chest x-ray: image reviewed (Labs x-rays a medications are all reviewed.) Assessment and Plan Assessment: Hypoxemic respiratory failure. Septic shock Bibasilar pneumonia New onset atrial fibrillation with rapid ventricular response Severe alcoholic liver disease and chronic alcohol abuse Alcoholic cirrhosis Profound hypotension Severe metabolic acidosis Plan: Plan dated 07/28/2017 I do long talk with the family. This included adult daughter Rae, who is a nurse and before. They wish to give their mother a bit more time on the ventilator. I think overall prognosis is very poor. She is on quite a bit of support including mechanical ventilation and a number of medications to maintain blood pressure. She develop new onset atrial fibrillation with RVR. Has a history of severe alcoholic liver disease and liver cirrhosis. Currently on sodium bicarbonate drip norepinephrine vasopressin heparin and propofol. Time with Patient: Greater than 30
--- NOTE | 2017-07-28 10:46 | P.CRDCN ---
History of Present Illness Consult date: 07/28/17 History of present illness: This is a 62-year-old female with history of alcohol abuse who has been sick for a couple weeks and was admitted to the hospital with acute respiratory distress and bilateral pneumonia. Patient is intubated. Patient still seemed to be acidotic. Blood cultures are positive. We're asked to see the patient because of atrial fibrillation with a rapid ventricular response. Patient is hypotensive requiring vasopressors. Her heart rate is in the range of 120 to 130. She is intubated and sedated. A chest x-ray shows bilateral pneumonia versus were getting worse. Patient also has creatinine of about 1.3. Patient is coming down. I'm going to give 1 dose of IV Lanoxin. Her potassium level is normal. May give additional dose of Lanoxin as needed. Once her blood pressure stable we'll add beta blockers. Echo Cardigan showed normal LV function Review of Systems Not obtained Past Medical History Past Medical History: No Reported History Additional Past Medical History / Comment(s): Arthritis History of Any Multi-Drug Resistant Organisms: None Reported Additional Past Surgical History / Comment(s): Lt fx Past Anesthesia/Blood Transfusion Reactions: No Reported Reaction Past Psychological History: No Psychological Hx Reported Smoking Status: Current every day smoker Past Alcohol Use History: Heavy Past Drug Use History: None Reported Medications and Allergies Home Medications Medication Instructions Recorded Confirmed Type Tolterodine Tartrate [Detrol LA] 2 mg PO DAILY 07/27/17 07/27/17 History Vitamin B Complex 1 cap PO DAILY 07/27/17 07/27/17 History Allergies Allergy/AdvReac Type Severity Reaction Status Date / Time No Known Allergies Allergy Verified 07/27/17 15:51 Physical Exam Vitals: Vital Signs Temp Pulse Pulse Resp BP Pulse Ox 07/28/17 09:45 160 H 26 H 96/65 90 L 07/28/17 09:30 132 H 26 H 96/65 79 L 07/28/17 09:15 142 H 26 H 96/65 80 L 07/28/17 09:00 155 H 27 H 96/65 84 L 07/28/17 08:45 136 H 27 H 96/65 78 L 07/28/17 08:30 146 H 26 H 96/65 78 L 07/28/17 08:15 137 H 26 H 96/65 77 L 07/28/17 08:00 102 F H 146 H 28 H 96/65 79 L 18 07:45 159 H 30 H 112/82 76 L 18 07:30 134 H 26 H 112/82 74 L 18 07:15 152 H 29 H 106/71 77 L 18 07:00 137 H 28 H 109/72 90 L 18 06:45 137 H 27 H 110/59 90 L 18 06:30 127 H 38 H 119/74 90 L 18 06:15 139 H 31 H 126/67 95 07/28/17 06:00 139 H 30 H 112/94 90 L 18 05:45 127 H 30 H 114/75 98 18 05:30 142 H 31 H 126/67 92 L 18 05:15 133 H 38 H 120/75 91 L 18 05:00 8 L 33 H 110/76 89 L 18 04:45 56 L 31 H 95/78 91 L 18 04:30 78 28 H 96/65 92 L 18 04:15 121 H 35 H 109/68 92 L 18 04:00 100 F H 102 H 104 H 31 H 109/67 92 L 18 03:45 126 H 31 H 108/56 92 L 18 03:30 100 29 H 107/55 93 L 18 03:15 134 H 26 H 92/63 93 L 18 03:00 113 H 26 H 87/58 93 L 18 02:45 115 H 33 H 104/52 93 L 18 02:30 115 H 37 H 93/62 88 L 18 02:15 94 32 H 92/51 87 L 18 02:00 97 28 H 87/50 88 L 18 01:45 55 L 28 H 83/49 89 L 18 01:30 98 33 H 90/54 88 L 18 01:15 115 H 25 H 90/53 89 L 18 01:00 111 H 31 H 96/53 90 L 18 00:45 98 30 H 82/50 91 L 07/28/17 00:30 109 H 30 H 86/58 91 L 07/28/17 00:15 108 H 27 H 96/57 91 L 07/28/17 00:00 98.4 F 110 H 104 H 22 90/41 92 L 07/27/17 23:45 111 H 22 95/54 94 L 07/27/17 23:30 118 H 22 86/52 94 L 07/27/17 23:15 96 22 94/87 94 L 07/27/17 23:00 103 H 22 92/51 97 07/27/17 22:45 101 H 22 82/60 97 07/27/17 22:30 120 H 22 93/45 97 07/27/17 22:15 113 H 22 87/46 96 07/27/17 22:00 98 22 93/53 92 L 07/27/17 21:45 115 H 22 81/47 97 07/27/17 21:30 116 H 22 83/51 97 07/27/17 21:15 118 H 22 87/49 96 07/27/17 21:00 114 H 22 82/54 97 07/27/17 20:45 121 H 17 92/50 93 L 07/27/17 20:44 113 H 20 92/50 92 L 07/27/17 20:30 125 H 21 88/46 92 L 07/27/17 20:15 138 H 27 H 82/51 94 L 07/27/17 20:00 123 H 124 H 14 106/62 93 L 07/27/17 19:45 98.6 F 139 H 24 89/59 94 L 07/27/17 19:09 135 H 128/60 07/27/17 19:05 158 H 113/71 07/27/17 18:50 150 H 149/70 07/27/17 18:36 156 H 176/86 07/27/17 18:09 165 H 86/59 07/27/17 17:44 88/52 07/27/17 17:30 98.6 F 124 H 14 91 L 07/27/17 16:42 146 H 120 H 88/57 90 L 07/27/17 16:21 139 H 20 81/51 91 L 07/27/17 16:06 134 H 18 84/53 07/27/17 15:24 98.7 F 158 H 18 93/55 07/27/17 14:55 139 H 16 89/52 07/27/17 14:45 156 H 18 88/57 07/27/17 14:35 161 H 18 94/59 07/27/17 14:15 166 H 07/27/17 14:13 144 H 16 91/54 07/27/17 14:05 98.4 F 166 H 98 H 102/61 98 Intake and Output 07/27/17 07/28/17 07/28/17 22:59 06:59 14:59 Intake Total 3213.137 3641.929 923.713 Output Total 0 63 55 Balance 3213.137 3578.929 868.713 Intake: IV 3025.0 3425.0 775 0.9 3000 2400 Calcium Gluconate 1,000 100 mg In Sodium Chloride 0.9 % 100 ml @ 100 mls/hr IVPB BID VANESSA Rx#: [id number] Dextrose 5%-0.45% NaCl 1, 500 375 000 ml @ 125 mls/hr IV . Q9H12M VANESSA with Sodium Bicarb (1 Meq/ml) 150 ml Rx#:[id number] Magnesium Sulfate-D5w Pmx 100 1 gm In Dextrose/Water 1 100ml.bag @ 100 mls/hr IVPB Q1H VANESSA Rx#: [id number] Piperacillin-Tazobactam 3 25.0 25.0 .375 gm In Dextrose/Water 1 50ml.bag @ 12.5 mls/hr IVPB ONCE STA Rx#: [id number] Sodium Chloride 0.9% 1, 500 200 000 ml @ 100 mls/hr IV . Q10H7M ONE with Mvi, Adult No.4 with Vit K 10 ml with Thiamine 100 mg with Folic Acid 1 mg Rx#: [id number] Intake, IV Titration 188.137 216.929 148.713 Amount Diltiazem 125 mg In 39.75 98.083 Sodium Chloride 0.9% 100 ml @ 5 MG/HR 5 mls/hr IV .Q24H ONE Rx#:[id number] Heparin Sod,Pork in 0.45% 28.543 148.713 NaCl 25,000 unit In 0.45 % NaCl 1 500ml.bag @ 12 UNITS/KG/HR 12.41 mls/hr IV .Q24H VANESSA Rx#: [id number] Norepinephrin 16 mg-0.9% 77.813 Ns Pmx 16 mg In 250 ml @ Titrate IV .Q0M VANESSA Rx#: [id number] Norepinephrin 4 mg-0.9% 119.844 Ns Pmx 4 mg In 250 ml @ Titrate IV .Q0M VANESSA Rx#: [id number] Propofol 1,000 mg In 41.033 Empty Bag 1 bag @ Titrate IV .Q0M VANESSA Rx#: [id number] Output: Urine 0 63 55 Other: Voiding Method Indwelling Catheter Indwelling Catheter Indwelling Catheter Weight 53.8 kg ABP, PAP, CO, CI - Last 8 Hours Arterial Blood Pressure 88/55 Arterial Blood Pressure 79/51 Arterial Blood Pressure 84/54 Arterial Blood Pressure 82/48 Arterial Blood Pressure 74/49 Arterial Blood Pressure 79/58 Arterial Blood Pressure 81/55 Arterial Blood Pressure 87/60 Arterial Blood Pressure 85/55 Arterial Blood Pressure 90/59 Arterial Blood Pressure 89/64 Arterial Blood Pressure 93/63 Arterial Blood Pressure 95/65 Arterial Blood Pressure 106/72 Arterial Blood Pressure 88/62 Arterial Blood Pressure 97/65 Arterial Blood Pressure 95/60 Arterial Blood Pressure 100/68 Arterial Blood Pressure 98/68 Arterial Blood Pressure 95/60 Arterial Blood Pressure 90/64 Arterial Blood Pressure 96/61 Arterial Blood Pressure 96/61 Arterial Blood Pressure 94/66 Arterial Blood Pressure 94/63 Arterial Blood Pressure 84/53 Arterial Blood Pressure 79/55 Arterial Blood Pressure 84/59 Arterial Blood Pressure 82/54 GENERAL EXAM: Patient is debated and sedated HEENT: Normocephalic. Normal reaction of pupils, equal size, normal range of extraocular motion. No erythema or exudates in the throat. NECK: No masses, no nuchal rigidity. CHEST: No chest wall deformity. LUNGS: Bilateral rhonchi, rales HEART: S1 and S2 normal. Irregular heart sounds ABDOMEN: Soft. SKIN: No rashes CENTRAL NERVOUS SYSTEM: Deferred EXTREMITIES: No cyanosis, clubbing or edema. Results 07/28/17 04:16 07/28/17 04:16 Cardiac Enzymes 07/27/17 07/27/17 07/28/17 Range/Units 14:00 14:00 04:16 AST 115 H 87 H (14-36) U/L Troponin I 0.024 (0.000-0.034) ng/mL Coagulation 07/27/17 07/28/17 Range/Units 14:00 04:16 PT 10.1 10.5 (9.0-12.0) sec APTT 22.8 30.4 H (22.0-30.0) sec CBC 07/27/17 07/28/17 Range/Units 14:00 04:16 WBC 10.6 14.1 H (3.8-10.6) k/uL RBC 4.99 4.26 (3.80-5.40) m/uL Hgb 16.6 H 13.8 (11.4-16.0) gm/dL Hct 50.5 H 45.9 (34.0-46.0) % Plt Count 213 138 L (150-450) k/uL Comprehensive Metabolic Panel 07/27/17 07/28/17 Range/Units 14:00 04:16 Sodium 134 L 140 (137-145) mmol/L Potassium 4.2 3.7 (3.5-5.1) mmol/L Chloride 91 L 114 H (98-107) mmol/L Carbon Dioxide 28 17 L (22-30) mmol/L BUN 104 H* 74 H (7-17) mg/dL Creatinine 1.30 H 1.40 H (0.52-1.04) mg/dL Glucose 88 94 (74-99) mg/dL Calcium 9.3 5.9 L* (8.4-10.2) mg/dL AST 115 H 87 H (14-36) U/L ALT 39 34 (9-52) U/L Alkaline Phosphatase 63 39 (38-126) U/L Total Protein 4.9 L 3.1 L (6.3-8.2) g/dL Albumin 2.5 L 1.4 L (3.5-5.0) g/dL Current Medications Generic Name Dose Route Start Last Admin Trade Name Freq PRN Reason Stop Dose Admin Chlorhexidine Gluconate 15 ml 07/28/17 09:00 07/28/17 08:50 Peridex MUCOUS MEM 15 ml BID VANESSA Administration Heparin Sodium (Porcine) 0 unit 07/28/17 07:56 Heparin IV PER PROTOCOL PRN Low PTT Protocol Diltiazem HCl 125 mg/ Sodium 125 mls @ 5 mls/hr 07/27/17 14:02 07/28/17 02:30 Chloride IV 02/12/18 14:01 0 mg/hr .Q24H ONE 0 mls/hr Protocol Titration 5 MG/HR Heparin Sodium/Sodium Chloride 500 mls @ 12.41 mls/hr 07/27/17 16:15 07:47 25,000 unit/ Sodium Chloride IV 15 units/kg/hr .Q24H VANESSA 15.51 mls/hr Protocol Titration 12 UNITS/KG/HR Fentanyl Citrate 2,500 mcg/ 250 mls @ 2 mls/hr 07/27/17 18:15 07/27/17 21:59 Sodium Chloride IV Not Given .Q24H VANESSA 20 MCG/HR Norepinephrine Bitartrate 16 mg in 250 mls @ 0 mls/hr 07/27/17 22:00 02:00 Levophed-0.9% Nacl 16 Mg/250ml Pmx IV 50 mcg/min .Q0M VANESSA 46.875 mls/hr Protocol Titration Titrate Propofol 1,000 mg/ IV Solution 100 mls @ 0 mls/hr 07/27/17 22:00 07/28/17 02: 00 IV 10.22 mcg/kg/min .Q0M VANESSA 3.3 mls/hr Protocol Titration Titrate Sodium Bicarbonate 150 ml/ 1,150 mls @ 125 mls/hr 07/28/17 04:00 07/28/17 03: 19 Dextrose/Sodium Chloride IV 125 mls/hr .Q9H12M VANESSA Administration Vasopressin 20 unit/ Sodium 100 mls @ 9 mls/hr 07/28/17 03:00 07/28/17 03:29 Chloride IV 9 mls/hr .Q11H7M VANESSA Administration 0.03 UNITS/MIN Calcium Gluconate 1,000 mg/ 110 mls @ 100 mls/hr 07/28/17 09:00 07/28/17 08: 52 Sodium Chloride IVPB 100 mls/hr BID VANESSA Administration Piperacillin/Tazobactam/ 50 mls @ 12.5 mls/hr 07/28/17 10:30 Dextrose 3.375 gm/ IV Solution IVPB Q8HR VANESSA Naloxone HCl 0.2 mg 07/27/17 21:51 Narcan IV Q2M PRN Opioid Reversal Pantoprazole Sodium 40 mg 07/28/17 09:00 07/28/17 08:50 Protonix IV 40 mg DAILY VANESSA Administration Intake and Output 07/27/17 07/28/17 07/28/17 22:59 06:59 14:59 Intake Total 3213.137 3641.929 923.713 Output Total 0 63 55 Balance 3213.137 3578.929 868.713 Intake: IV 3025.0 3425.0 775 0.9 3000 2400 Calcium Gluconate 1,000 100 mg In Sodium Chloride 0.9 % 100 ml @ 100 mls/hr IVPB BID VANESSA Rx#: [id number] Dextrose 5%-0.45% NaCl 1, 500 375 000 ml @ 125 mls/hr IV . Q9H12M VANESSA with Sodium Bicarb (1 Meq/ml) 150 ml Rx#:[id number] Magnesium Sulfate-D5w Pmx 100 1 gm In Dextrose/Water 1 100ml.bag @ 100 mls/hr IVPB Q1H VANESSA Rx#: [id number] Piperacillin-Tazobactam 3 25.0 25.0 .375 gm In Dextrose/Water 1 50ml.bag @ 12.5 mls/hr IVPB ONCE STA Rx#: [id number] Sodium Chloride 0.9% 1, 500 200 000 ml @ 100 mls/hr IV . Q10H7M ONE with Mvi, Adult No.4 with Vit K 10 ml with Thiamine 100 mg with Folic Acid 1 mg Rx#: [id number] Intake, IV Titration 188.137 216.929 148.713 Amount Diltiazem 125 mg In 39.75 98.083 Sodium Chloride 0.9% 100 ml @ 5 MG/HR 5 mls/hr IV .Q24H ONE Rx#:[id number] Heparin Sod,Pork in 0.45% 28.543 148.713 NaCl 25,000 unit In 0.45 % NaCl 1 500ml.bag @ 12 UNITS/KG/HR 12.41 mls/hr IV .Q24H VANESSA Rx#: [id number] Norepinephrin 16 mg-0.9% 77.813 Ns Pmx 16 mg In 250 ml @ Titrate IV .Q0M VANESSA Rx#: [id number] Norepinephrin 4 mg-0.9% 119.844 Ns Pmx 4 mg In 250 ml @ Titrate IV .Q0M VANESSA Rx#: [id number] Propofol 1,000 mg In 41.033 Empty Bag 1 bag @ Titrate IV .Q0M VANESSA Rx#: [id number] Output: Urine 0 63 55 Other: Voiding Method Indwelling Catheter Indwelling Catheter Indwelling Catheter Weight 53.8 kg 07/28/17 04:16 07/28/17 04:16 EKG Interpretations (text) Atrial fibrillation with RVR Assessment and Plan (1) Atrial fibrillation with RVR Current Visit: Yes Status: Acute Code(s): I48.91 - UNSPECIFIED ATRIAL FIBRILLATION SNOMED Code(s): 947802341218734 (2) Septic shock Current Visit: Yes Status: Acute Code(s): A41.9 - SEPSIS, UNSPECIFIED ORGANISM; R65.21 - SEVERE SEPSIS WITH SEPTIC SHOCK SNOMED Code(s): 27728444 (3) Bilateral pneumonia Current Visit: Yes Status: Acute Code(s): J18.9 - PNEUMONIA, UNSPECIFIED ORGANISM SNOMED Code(s): 433883473 (4) History of alcohol abuse Current Visit: Yes Status: Acute Code(s): Z87.898 - PERSONAL HISTORY OF OTHER SPECIFIED CONDITIONS SNOMED Code(s): 290803983 Plan: This patient is admitted to bilateral pneumonia and sepsis. Patient has A. fib with RVR. Echocardiogram showed good LV function. Patient is still hypotensive requiring vasopressors. I'm going to one dose of Lanoxin today for rate control.
[2017-07-28] MEDS: PIPERACILLIN-TAZOBACTAM 3.375 GM in DEXTROSE/WATER 1 50ML.BAG IVPB SCH ×2 (10:56→16:25)
[2017-07-28] MEDS: NOREPINEPHRIN 16 MG-0.9%NS PMX 16 MG/250 ML ML IV SCH ×3 (11:23→23:19)
[2017-07-28] MEDS: DIGOXIN 250 MCG/ML 2 ML AMP IVP SCH (11:23)
--- NOTE | 2017-07-28 16:33 | PN ---
PROGRESS NOTE DATE OF SERVICE: This 62-year-old woman who was admitted with bilateral pneumonia, sepsis, and also change in mental status, being closely monitored. The patient is mechanically intubated because of hypoxic respiratory failure. The patient has also elevated lactic acid. Patient is on broad spectrum IV antibiotics. PAST MEDICAL HISTORY: Could not be taken. PHYSICAL EXAM: The patient is mechanically ventilated and sedated. Pulse is 101, blood pressure is 82/60, respiration 20, temp is normal, pulse ox 97%, 100% FiO2. Vent settings are noted. HEENT: Conjunctivae normal. Oral mucosa moist. NECK: No jugular venous distention. No lymph node enlargement. CARDIOVASCULAR: S1 and S2. No S4. RESPIRATORY: Breath sounds diminished in the bases. few scattered rhonchi and crackles. ABDOMEN: Soft, nontender. No mass palpable. LEGS: No edema or cyanosis. NERVOUS SYSTEM: Mechanically ventilated and sedated. SKIN: No ulcers or rashes. LAB INVESTIGATIONS: WBC 14.1, hemoglobin 13.2, MCV 107.7. ABGs noted. Otherwise CO2 is 17. Calcium is 5.9. ASSESSMENT: 1. Bilateral pneumonia with hypotension, sepsis, as well as acute hypoxic respiratory failure on mechanical ventilation. 2. Acute metabolic and respiratory acidosis. 3. Hyponatremia. 4. Acute renal failure. 5. Increased WBC. 6. History of degenerative joint disease. 7. History of nicotine dependence. 8. History of ETOH. 9. Hypocalcemia. 10.FULL CODE. RECOMMENDATIONS: This 62-year-old woman who presented with multiple complex medical issues, will monitor the patient closely, continue the current management and symptomatic treatment. Otherwise at this time I recommend to continue with broad-spectrum IV antibiotics. Obtain cultures. Mechanical ventilation per Dr. De La Garza. Prognosis guarded because of multiple complex medical issues. Discussed at length with the family at the bedside who understand and agree. Further recommendations to follow. MMODL / IJN: [id number] /
--- NOTE | 2017-07-28 16:42 | HP ---
HISTORY AND PHYSICAL DATE OF SERVICE: 07/27/2017 CHIEF COMPLAINTS: Weakness, change in mental status. HISTORY OF PRESENT ILLNESS: This 62-year-old woman with a past medical history of multiple medical problems including history of DJD, history of left fracture, history of smoking being followed by Dr. Guzman in the outpatient setting apparently had significant history of EtOH also. The patient has been binge drinking almost like 5 days according to the family. The patient has not seen and the patient apparently was lying in the bed and the patient was living at home alone and because of increasing weakness, neighbor called the EMS and the patient taken to [facility] and admitted to the hospital for further evaluation and treatment. The patient is obtunded at this time. Unable to give a coherent history. Most of the history, taken from my discussion with the family and discussion with staff and review of chart and discussion with ER physician. PAST MEDICAL HISTORY: History of DJD, history of left fracture, history of nicotine dependence. MEDICATIONS: Prior to admission include home medications are: 1. Detrol LA 2 mg p.o. daily. ALLERGIES: None. Family history, social history and review of systems could not be taken because of the patient's change in mental status. PHYSICAL EXAM: Patient is stuporous. Pulse is 111, blood pressure 99/53, respiration 31, temperature is normal. Pulse ox 98% on 100% nonbreather. HEENT: Conjunctivae normal. Oral mucosa moist. Neck is no jugular venous distention. No carotid bruit. No lymph node enlargement. Cardiovascular: S1, S2 muffled. No S3, no S4. Respiratory: Breath sounds diminished in the bases. Bilateral scattered rhonchi and crackles. ABDOMEN: Soft, nontender. No mass palpable. Legs: No edema and no swelling. NERVOUS SYSTEM: Higher functions as mentioned earlier, moves all 4 limbs. No focal deficits. Lymphatics: No lymph nodes palpable in the neck, axillae or groin. Skin: No ulcer, rash or bleeding. LABS: Yesterday's labs are WBC 10.2, hemoglobin 16.6, pH of 7.16 and plasma lactic acid 3. Chest x-ray, bilateral pneumonia. ASSESSMENT: 1. Bilateral pneumonia with severe sepsis and hypotension as well as acute hypoxic respiratory failure with acute metabolic acidosis, metabolic and respiratory acidosis, acute respiratory acidosis. 2. Change in mental status, metabolic encephalopathy. 3. History of ETOH. 4. Increased plasma lactic acid. 5. Increased MCV. 6. History of degenerative joint disease. 7. History of fracture. RECOMMENDATIONS AND DISCUSSION: This 62-year-old woman who presented with multiple complex medical issues, we will monitor the patient closely, continue the current medications, continue symptomatic treatment. Otherwise, I would recommend the patient be admitted in ICU. IV fluids, four fluid boluses. ABGs. Closely monitor with Dr. De La Garza. Continue with oxygenation at this time. The blood pressure is not coming, I recommend Levophed drip and continue broad-spectrum IV antibiotics. Obtain cultures. Prognosis extremely guarded because of multiple complex medical issues which I discussed with the family who understands and agrees. Further recommendations to follow. MMODL / IJN: [id number] / MIKKI
[2017-07-28] MEDS: fentaNYL (PF) 2,500 MCG in SODIUM CHLORIDE 0.9% 200 ML IV SCH (18:39)
[2017-07-28] MEDS: HEPARIN SOD,PORK IN 0.45% NACL 25,000 UNIT in 0.45% NACL 1 500ML.BAG IV SCH (23:19)
[2017-07-29] MEDS ORDERED: VANCOMYCIN 1,000 MG in SODIUM CHLORIDE 0.9% 250 ML IVPB STA (00:22)
[2017-07-29] MEDS ORDERED: VANCOMYCIN IV PER PHARMACY 1 EACH MISC MISCELLANE PRN ×2 (00:22→12:52)
[2017-07-29] MEDS: PIPERACILLIN-TAZOBACTAM 3.375 GM in DEXTROSE/WATER 1 50ML.BAG IVPB SCH ×2 (00:26→08:15)
[2017-07-29 04:43] LABS: ABG Base Excess -6.5 mmol/L; ABG HCO3 21 mmol/L (21-25); ABG PCO2 54 mmHg (35-45); ABG PH 7.21 (7.35-7.45); ABG PO2 52 mmHg (83-108); ABG TCO2 23 mmol/L (19-24)
[2017-07-29 05:13] LABS: HCT 45.3 % (34.0-46.0); Hypochromasia Slight; MCH 32.9 pg (25.0-35.0); MCHC 30.8 g/dL (31.0-37.0); MCV 106.7 fL (80.0-100.0); Macrocytosis Moderate; Mean Platelet Volume 13.2; RBC 4.24 m/uL (3.80-5.40); RDW 14.1 % (11.5-15.5)
[2017-07-29 05:18] LABS: Magnesium 2.1 mg/dL (1.6-2.3); Phosphorus 3.8 mg/dL (2.5-4.5); Potassium 3.4 mmol/L (3.5-5.1)
[2017-07-29] MEDS: NOREPINEPHRIN 16 MG-0.9%NS PMX 16 MG/250 ML ML IV SCH ×2 (05:42→10:16)
[2017-07-29 05:50] LABS: Calcium 6.4 mg/dL (8.4-10.2)
[2017-07-29 06:08] LABS: Platelet Count 47 k/uL (150-450)
[2017-07-29] MEDS: PROPOFOL 1,000 MG in EMPTY BAG 1 BAG IV SCH (06:24)
--- NOTE | 2017-07-29 06:36 | XR ---
EXAMINATION TYPE: XR chest 1V portable DATE OF EXAM: 07/29/2017 CLINICAL HISTORY: Difficulty breathing progress study. TECHNIQUE: Single AP portable semiupright view of the chest is obtained. COMPARISON: Chest x-ray from one day earlier and older studies. FINDINGS: An endotracheal tube, orogastric tube, and right internal jugular central venous catheter are all stable in appearance. There is persistent bibasilar opacity silhouetting hemidiaphragms consistent with small bilateral ple ural effusions and associated bibasilar atelectasis and/or infiltrates. Upper lungs remain clear with out pneumothorax. Cardiac silhouette size is stable and felt within normal limits. Osseous structures are intact. IMPRESSION: Overall stable findings, persistent left greater than right bibasilar infiltrate and/or atelectasis and suspected small bilateral pleural effusions all redemonstrated.
[2017-07-29] MEDS: SODIUM CHLORIDE 0.9% 99 ML with VASOPRESSIN 20 UNIT IV SCH ×2 (06:59)
[2017-07-29] MEDS ORDERED: POTASSIUM CHLORIDE ORAL LIQUID 40 MEQ/30 ML CUP NG-TUBE SCH (07:00)
[2017-07-29] MEDS: DEXTROSE 5%-0.45% NACL 1,000 ML with SODIUM BICARB (1 MEQ/ML) 150 ML IV SCH ×2 (08:15)
[2017-07-29 08:37] LABS: Myelocytes % 1 %; Neutrophils % (M) 92 %; Nucleated Red Blood Cells 5 /100 WBC (0-0); Total Cells Counted 200
[2017-07-29 08:38] LABS: Eosinophils # (M) 0.21 k/uL (0-0.7); Lymphocytes # (M) 1.07 k/uL (1.0-4.8); Monocytes # (M) 0.43 k/uL (0-1.0); Myelocytes # (M) 0.21 k/uL (0); Neutrophils # (M) 19.69 k/uL (1.3-7.7); WBC 21.4 k/uL (3.8-10.6)
[2017-07-29 08:39] LABS: Large Platelets Present; Toxic Granulation Present
[2017-07-29] MEDS: CHLORHEXIDINE GLUCONATE 15 ML CUP MUCOUS MEM SCH (09:08)
[2017-07-29] MEDS: PANTOPRAZOLE 40 MG/10 ML VIAL IV SCH (09:09)
--- NOTE | 2017-07-29 09:17 | P.PN ---
Subjective Progress Note Date: 07/29/17 Principal diagnosis: Respiratory failure Progress note dated 07/29/2017 This is a 62-year-old female who was initially evaluated in the emergency department. The patient has a history of heavy alcohol abuse and has been drinking up until the time of admission. EMS was called. The patient was lying in her bed soaked in her own urine. She apparently was very weak and fatigued and also was having some respiratory issues. She had been treated for a urinary tract infection with amoxicillin. She apparently had and the alcohol bottles strewn throughout the house. She was admitted to the ICU because of alcohol abuse and sepsis and possible pneumonia and new onset atrial fibrillation. Subsequent to me talking to the ER doctor, the patient was intubated for respiratory failure. The patient was transferred to the ICU on the ventilator. She remains on the ventilator doing very poorly. I do long discussion with the family yesterday. They're inclined to continue a full life support at the current time. Overall prognosis is very poor. She is on maximal medical therapy she's not really shown much improvement. She is maxed out on both norepinephrine and vasopressin. She received lots of fluids. Despite that, she is profoundly hypotensive and hypoxemic. She has developed multiorgan system failure. Blood cultures came back positive for Streptococcus pneumoniae and she was started on vancomycin. Infectious disease was consulted. Currently, she is on the assist control mode with a rate of 26 tidal volume of 350 FiO2 of 100% and PEEP of 5. Her arterial blood gases show a PaO2 of 52 a PaCO2 of 53 and a pH of 7.2. She is receiving vasopressin at 0.03 units per minute, norepinephrine at 50 mics per minute, dextrose with half- normal saline and 3 Amps of bicarb at 125 mL an hour and propofol at 10 mics per kilogram per minute. Objective - Vital Signs Vital signs: Vital Signs Temp 98.1 F 07/29/17 08:00 Pulse 129 H 07/29/17 09:00 Resp 32 H 07/29/17 09:00 BP 108/58 07/29/17 08:00 Pulse Ox 86 L 07/29/17 08:00 Intake & Output 07/28/17 07/29/17 07/29/17 18:59 06:59 18:59 Intake Total 2562.557 2770.545 207 Output Total 130 161 31 Balance 2432.557 2609.545 176 Weight 53.8 kg 66.7 kg 66.7 kg Intake: IV 2065 1632 157 0.9 33 23 Calcium Gluconate 1,000 100 mg In Sodium Chloride 0.9 % 100 ml @ 100 mls/hr IVPB [facility] Rx#: [id number] Dextrose 5%-0.45% NaCl 1, 1375 1500 125 000 ml @ 125 mls/hr IV . Q9H12M [facility] with Sodium Bicarb (1 Meq/ml) 150 ml Rx#:[id number] Magnesium Sulfate-D5w Pmx 200 1 gm In Dextrose/Water 1 100ml.bag @ 100 mls/hr IVPB Q1H [facility] Rx#: [id number] Piperacillin-Tazobactam 3 100 .375 gm In Dextrose/Water 1 50ml.bag @ 12.5 mls/hr IVPB ONCE [facility] Rx#: [id number] Sodium Chloride 0.9% 1, 200 000 ml @ 100 mls/hr IV . Q10H7M ONE with Mvi, Adult No.4 with Vit K 10 ml with Thiamine 100 mg with Folic Acid 1 mg Rx#: [id number] Sodium Chloride 0.9% 99 90 99 9 ml @ 0.03 UNITS/MIN 9 mls /hr IV .Q11H7M [facility] with Vasopressin 20 unit Rx#: [id number] Intake, IV Titration 869.534 3993.545 50 Amount Calcium Gluconate 1,000 100 mg In Sodium Chloride 0.9 % 100 ml @ 100 mls/hr IVPB [facility] Rx#: [id number] Heparin Sod,Pork in 0.45% 148.713 240.922 NaCl 25,000 unit In 0.45 % NaCl 1 500ml.bag @ 12 UNITS/KG/HR 12.41 mls/hr IV .Q24H [facility] Rx#: [id number] Norepinephrin 16 mg-0.9% 339.844 438.656 Ns Pmx 16 mg In 250 ml @ Titrate IV .Q0M [facility] Rx#: [id number] Piperacillin-Tazobactam 3 50.0 50 .375 gm In Dextrose/Water 1 50ml.bag @ 12.5 mls/hr IVPB Q8HR [facility] Rx#: [id number] Propofol 1,000 mg In 58.967 Empty Bag 1 bag @ Titrate IV .Q0M [facility] Rx#: [id number] Sodium Chloride 0.9% 99 9 ml @ 0.03 UNITS/MIN 9 mls /hr IV .Q11H7M [facility] with Vasopressin 20 unit Rx#: [id number] Vancomycin 1,000 mg In 250 Sodium Chloride 0.9% 250 ml @ 125 mls/hr IVPB ONCE [facility] Rx#:[id number] Output: Urine 130 161 31 Other: Voiding Method Indwelling Catheter Indwelling Catheter ABP, PAP, CO, CI - Last Documented Arterial Blood Pressure 101/59 - Exam No acute distress, sedated, orally placed endotracheal tube and NG tube HEENT examination is grossly unremarkable. Neck supple. Full range of motion. No adenopathy thyromegaly or neck vein distention. Cardiovascular examination reveals regular rhythm rate. S1-S2 normal. No S3 or S4. No discernible murmur noted. Patient is tachycardic. Lungs reveal diminished breath sounds. There is bilateral rhonchi. No crackles. No wheezes. Breath sounds are diminished. Abdomen soft and bowel sounds are heard. No masses or tenderness. Mildly distended. Extremities are intact. Patient has significant mottling and livedo reticularis.. Skin reveals acrocyanosis. Neurologic examination could not be adequately assessed. - Labs CBC & Chem 7: 07/29/17 04:41 07/29/17 04:41 Labs: Abnormal Lab Results - Last 24 Hours (Table) 07/28/17 07/28/17 07/29/17 Range/Units 09:13 14:15 04:39 WBC (3.8-10.6) k/uL MCV (80.0-100.0) fL MCHC (31.0-37.0) g/dL Plt Count (150-450) k/uL Neutrophils # (Manual) (1.3-7.7) k/uL Myelocytes # (Manual) (0) k/uL Nucleated RBCs (0-0) /100 WBC APTT 47.6 H (22.0-30.0) sec ABG pH 7.10 L* 7.21 L (7.35-7.45) ABG pCO2 55 H 54 H (35-45) mmHg ABG pO2 76 L 52 L (83-108) mmHg ABG HCO3 17 L (21-25) mmol/L ABG O2 Saturation 93.4 L 86.0 L (94-97) % Potassium (3.5-5.1) mmol/L Chloride (98-107) mmol/L BUN (7-17) mg/dL Creatinine (0.52-1.04) mg/dL Glucose (74-99) mg/dL Calcium (8.4-10.2) mg/dL Ionized Calcium Patricia (4.5-5.3) mg/dL 07/29/17 07/29/17 07/29/17 Range/Units 04:41 04:41 05:59 WBC 21.4 H (3.8-10.6) k/uL MCV 106.7 H (80.0-100.0) fL MCHC 30.8 L (31.0-37.0) g/dL Plt Count 47 L* D (150-450) k/uL Neutrophils # (Manual) 19.69 H (1.3-7.7) k/uL Myelocytes # (Manual) 0.21 H (0) k/uL Nucleated RBCs 5 H (0-0) /100 WBC APTT (22.0-30.0) sec ABG pH (7.35-7.45) ABG pCO2 (35-45) mmHg ABG pO2 (83-108) mmHg ABG HCO3 (21-25) mmol/L ABG O2 Saturation (94-97) % Potassium 3.4 L (3.5-5.1) mmol/L Chloride 113 H (98-107) mmol/L BUN 75 H (7-17) mg/dL Creatinine 1.90 H (0.52-1.04) mg/dL Glucose 141 H (74-99) mg/dL Calcium 6.4 L* (8.4-10.2) mg/dL Ionized Calcium Patricia 4.1 L (4.5-5.3) mg/dL Microbiology - Last 24 Hours (Table) 07/27/17 14:00 Urine Culture - Final Urine,Catheterized 07/27/17 14:00 Blood Culture Gram Stain - Preliminary Blood Blood Culture - Preliminary Streptococcus pneumoniae 07/27/17 14:00 Blood Culture - Final Blood Assessment and Plan Assessment: Assessment Hypoxemic respiratory failure. Septic shock Bibasilar pneumonia New onset atrial fibrillation with rapid ventricular response Severe alcoholic liver disease and chronic alcohol abuse Alcoholic cirrhosis Profound hypotension Severe metabolic acidosis Streptococcus pneumoniae bacteremia Multiorgan system failure Profound hypotension, despite maximal dose norepinephrine and vasopressin Plan: Plan dated 07/28/2017 I do long talk with the family. This included adult daughter Rae, who is a nurse and before. They wish to give their mother a bit more time on the ventilator. I think overall prognosis is very poor. She is on quite a bit of support including mechanical ventilation and a number of medications to maintain blood pressure. She develop new onset atrial fibrillation with RVR. Has a history of severe alcoholic liver disease and liver cirrhosis. Currently on sodium bicarbonate drip norepinephrine vasopressin heparin and propofol. Plan dated 07/29/2017 I had a long talk with the family yesterday. They're inclined to continue full life support at this time. I really pain in the very grim picture to them. Apparently one of the dogs daughters is a nurse on the fourth floor here. The patient has really not responded to maximal medical therapy. She is on maximal doses of norepinephrine and vasopressin. Her blood pressure remains low. She does receive more than 8 or 10 L of fluid. She has severe end-stage liver disease. Her blood gases show profound hypoxemic with a respiratory acidosis. The patient's PEEP will be increased from 5 to 10. She'll be started on vancomycin for her Streptococcus pneumoniae bacteremia. Again prognosis is very poor. I think the patient should be made a comfort measures patient. We' ll have another discussion with the family today. Time spent with patient was 32 minutes Time with Patient: Greater than 30
[2017-07-29] MEDS: DIGOXIN 250 MCG/ML 2 ML AMP IVP SCH (09:28)
[2017-07-29] MEDS ORDERED: SODIUM CHLORIDE 0.45% 1,000 ML IV SCH (09:45)
[2017-07-29] MEDS ORDERED: DEXTROSE 5% IN WATER 1,000 ML with SODIUM BICARB (1 MEQ/ML) 150 ML IV SCH (09:45)
[2017-07-29 10:26] VITALS: BP 90/63
[2017-07-29] MEDS: CALCIUM GLUCONATE 1,000 MG in SODIUM CHLORIDE 0.9% 100 ML IVPB SCH (10:43)
--- NOTE | 2017-07-29 11:16 | P.PN ---
Subjective Progress Note Date: 07/29/17 This 62-year-old female is admitted to hospital with bilateral pneumonia. Patient also has history of alcohol is a liver disease. Patient is still intubated. Patient clinical status not improving. Patient is being transferred to [facility]. Patient is still in atrial fibrillation. Patient is getting IV Lanoxin with control of the rate. Patient is taken off anticoagulation because of thrombocytopenia. Objective - Vital Signs Vital signs: Vital Signs Temp 98.1 F 07/29/17 08:00 Pulse 118 H 07/29/17 11:00 Resp 27 H 07/29/17 11:00 BP 90/63 07/29/17 10:15 Pulse Ox 86 L 07/29/17 08:00 Intake & Output 07/28/17 07/29/17 07/29/17 18:59 06:59 18:59 Intake Total 2562.557 2770.545 511.375 Output Total 130 161 46 Balance 2432.557 2609.545 465.375 Weight 53.8 kg 66.7 kg 66.7 kg Intake: IV 2065 1632 277 0.9 33 43 Calcium Gluconate 1,000 100 100 mg In Sodium Chloride 0.9 % 100 ml @ 100 mls/hr IVPB BID [facility] Rx#: [id number] Dextrose 5%-0.45% NaCl 1, 1375 1500 125 000 ml @ 125 mls/hr IV . Q9H12M [facility] with Sodium Bicarb (1 Meq/ml) 150 ml Rx#:[id number] Magnesium Sulfate-D5w Pmx 200 1 gm In Dextrose/Water 1 100ml.bag @ 100 mls/hr IVPB Q1H [facility] Rx#: [id number] Piperacillin-Tazobactam 3 100 .375 gm In Dextrose/Water 1 50ml.bag @ 12.5 mls/hr IVPB ONCE [facility] Rx#: [id number] Sodium Chloride 0.9% 1, 200 000 ml @ 100 mls/hr IV . Q10H7M ONE with Mvi, Adult No.4 with Vit K 10 ml with Thiamine 100 mg with Folic Acid 1 mg Rx#: [id number] Sodium Chloride 0.9% 99 90 99 9 ml @ 0.03 UNITS/MIN 9 mls /hr IV .Q11H7M [facility] with Vasopressin 20 unit Rx#: [id number] Intake, IV Titration 144.871 4704.545 234.375 Amount Calcium Gluconate 1,000 100 mg In Sodium Chloride 0.9 % 100 ml @ 100 mls/hr IVPB BID [facility] Rx#: [id number] Heparin Sod,Pork in 0.45% 148.713 240.922 NaCl 25,000 unit In 0.45 % NaCl 1 500ml.bag @ 12 UNITS/KG/HR 12.41 mls/hr IV .Q24H [facility] Rx#: [id number] Norepinephrin 16 mg-0.9% 339.844 438.656 184.375 Ns Pmx 16 mg In 250 ml @ Titrate IV .Q0M [facility] Rx#: [id number] Piperacillin-Tazobactam 3 50.0 50 .375 gm In Dextrose/Water 1 50ml.bag @ 12.5 mls/hr IVPB Q8HR [facility] Rx#: [id number] Propofol 1,000 mg In 58.967 Empty Bag 1 bag @ Titrate IV .Q0M [facility] Rx#: [id number] Sodium Chloride 0.9% 99 9 ml @ 0.03 UNITS/MIN 9 mls /hr IV .Q11H7M [facility] with Vasopressin 20 unit Rx#: [id number] Vancomycin 1,000 mg In 250 Sodium Chloride 0.9% 250 ml @ 125 mls/hr IVPB ONCE STA Rx#:[id number] Output: Urine 130 161 46 Other: Voiding Method Indwelling Catheter Indwelling Catheter Indwelling Catheter ABP, PAP, CO, CI - Last Documented Arterial Blood Pressure 85/53 - Exam GENERAL EXAM: Patient intubated and sedated HEENT: Normocephalic. Normal reaction of pupils, equal size, normal range of extraocular motion. No erythema or exudates in the throat. NECK: No masses, no nuchal rigidity. CHEST: No chest wall deformity. LUNGS: Diminished breath sounds HEART: S1 and S2 normal. Distant heart sounds ABDOMEN: Deferred CENTRAL NERVOUS SYSTEM: Deferred EXTREMITIES: No cyanosis, clubbing or edema. - Labs CBC & Chem 7: 07/29/17 04:41 07/29/17 04:41 Labs: Abnormal Lab Results - Last 24 Hours (Table) 07/28/17 07/29/17 07/29/17 Range/Units 14:15 04:39 04:41 WBC 21.4 H (3.8-10.6) k/uL MCV 106.7 H (80.0-100.0) fL MCHC 30.8 L (31.0-37.0) g/dL Plt Count 47 L* D (150-450) k/uL Neutrophils # (Manual) 19.69 H (1.3-7.7) k/uL Myelocytes # (Manual) 0.21 H (0) k/uL Nucleated RBCs 5 H (0-0) /100 WBC APTT 47.6 H (22.0-30.0) sec ABG pH 7.21 L (7.35-7.45) ABG pCO2 54 H (35-45) mmHg ABG pO2 52 L (83-108) mmHg ABG O2 Saturation 86.0 L (94-97) % Potassium (3.5-5.1) mmol/L Chloride (98-107) mmol/L BUN (7-17) mg/dL Creatinine (0.52-1.04) mg/dL Glucose (74-99) mg/dL Calcium (8.4-10.2) mg/dL Ionized Calcium Patricia (4.5-5.3) mg/dL 07/29/17 07/29/17 Range/Units 04:41 05:59 WBC (3.8-10.6) k/uL MCV (80.0-100.0) fL MCHC (31.0-37.0) g/dL Plt Count (150-450) k/uL Neutrophils # (Manual) (1.3-7.7) k/uL Myelocytes # (Manual) (0) k/uL Nucleated RBCs (0-0) /100 WBC APTT (22.0-30.0) sec ABG pH (7.35-7.45) ABG pCO2 (35-45) mmHg ABG pO2 (83-108) mmHg ABG O2 Saturation (94-97) % Potassium 3.4 L (3.5-5.1) mmol/L Chloride 113 H (98-107) mmol/L BUN 75 H (7-17) mg/dL Creatinine 1.90 H (0.52-1.04) mg/dL Glucose 141 H (74-99) mg/dL Calcium 6.4 L* (8.4-10.2) mg/dL Ionized Calcium Patricia 4.1 L (4.5-5.3) mg/dL Microbiology - Last 24 Hours (Table) 07/27/17 18:20 Gram Stain - Preliminary Sputum Sputum Culture - Preliminary Streptococcus pneumoniae 07/27/17 14:00 Urine Culture - Final Urine,Catheterized 07/27/17 14:00 Blood Culture Gram Stain - Preliminary Blood Blood Culture - Preliminary Streptococcus pneumoniae Assessment and Plan (1) Atrial fibrillation with RVR Current Visit: Yes Status: Acute Code(s): I48.91 - UNSPECIFIED ATRIAL FIBRILLATION SNOMED Code(s): 706300274443152 (2) Septic shock Current Visit: Yes Status: Acute Code(s): A41.9 - SEPSIS, UNSPECIFIED ORGANISM; R65.21 - SEVERE SEPSIS WITH SEPTIC SHOCK SNOMED Code(s): 92959560 (3) Bilateral pneumonia Current Visit: Yes Status: Acute Code(s): J18.9 - PNEUMONIA, UNSPECIFIED ORGANISM SNOMED Code(s): 939978921 (4) History of alcohol abuse Current Visit: Yes Status: Acute Code(s): Z87.898 - PERSONAL HISTORY OF OTHER SPECIFIED CONDITIONS SNOMED Code(s): 122798584 Plan: Patient is being transferred to [facility] for further care
[2017-07-29] MEDS ORDERED: VANCOMYCIN 1,250 MG in SODIUM CHLORIDE 0.9% 250 ML IVPB SCH ×2 (12:00→13:00)
[2017-07-29 12:54] VITALS: TEMP 98.9
[2017-07-29 13:24] VITALS: PULSE 160; RESP 27
--- NOTE | 2017-07-29 13:37 | CONS ---
CONSULTATION DATE OF SERVICE: 07/29/2017 REASON FOR CONSULTATION: Bacteremia and septic shock. HISTORY OF PRESENT ILLNESS: The patient is a 62-year-old, female, brought into the ER at [facility] on July. Apparently the EMS was called to the [place] by neighbor who regularly checks on her. On arrival to [place], the EMS noticed the patient lying in the bed, soaked in her own urine. The patient appears very fatigued. The patient apparently has been recently treated with urinary tract infection with oral amoxicillin. The patient was transferred to the ER where the patient did have a chest x- ray, which shows bibasilar infiltrate within the lingula and posterior medial right lower lobe. The patient was afebrile on presentation; however, subsequently did spike a fever of 102 degrees Fahrenheit. The patient has been tachycardic with heart rates in 120s to 130s to 140s. The patient was significantly hypotensive on arrival to the ER with systolic 90 went down to 85 systolic. She has been treated with multiple fluid boluses and max support of the Levophed and vasopressin. The patient did have a white count 10.6. Subsequently jumped to 14.1 yesterday and 21.4 today. The patient did have blood cultures as well as sputum culture now showing strep pneumo, hence, ID was consulted for further recommendation regarding antibiotic therapy. All of this has been obtained from prior review of the chart and talking to the nurse staff. The patient herself is unable to provide any reliable history. REVIEW OF SYSTEMS: Could not be reliably obtained though the positive points have been mentioned in the HPI. PAST MEDICAL HISTORY: Osteoarthritis, UTI. PAST SURGICAL HISTORY: No reported surgeries. SOCIAL HISTORY: Positive for heavy smoking and drinking. No drug use. FAMILY HISTORY: No pertinent findings in the chart. ALLERGIES: No known drug allergies. MEDICATIONS: Medications include the patient is currently on digoxin, Narcan, Levophed, Protonix, piperacillin tazobactam, propofol, vancomycin pharmacy to dose. PHYSICAL EXAMINATION: On examination, her blood pressure is 85/53 with a pulse of 118, temperature of 99. She is on 100% FiO2. General description is a middle aged female, lying in bed, intubated on the vent. HEENT examination shows no pallor or scleral icterus. The patient is orally intubated. Limited examination of oral cavity. NECK: Trachea central. There is no thyromegaly. LUNGS: Unlabored breathing. Coarse breath sounds bilaterally, no wheeze. HEART: S1, S2. Tachycardic. No loud murmur. ABDOMEN: Soft, no tenderness. No guarding or rigidity. EXTREMITIES: No edema of feet. Feet are mottled. SKIN EXAMINATION: No rash or mass palpable. NEUROLOGICAL: The patient is currently sedated on the vent. Neuro exam could not be completed. LABS: Hemoglobin is 14, white count 21.4 with a BUN of 75, creatinine 1.90. Blood and sputum culture with strep pneumo. DIAGNOSTIC IMPRESSION AND PLAN: Patient with sepsis with septic shock in a patient who do have pneumonia with blood and sputum culture lastly showing a Streptococcus pneumoniae likely community- acquired, however, the patient was noticed to be unresponsive underlying component of aspiration is not entirely excluded. The patient has been on outpatient amoxicillin, likely a penicillin resistant pathogen. The patient currently max support off the pressors as well as oxygen and do carry overall very grim prognosis and survival. The patient is high risk of toxicity from the medication that she needs to be treated for underlying severe sepsis from the Streptococcus pneumoniae. PLAN: 1. Recommend to restart the vancomycin pharmacy to dose with careful watching of her trough and kidney function as we have to make sure we are not dealing with a penicillin and cephalosporin resistant pathogen and will continue Zosyn that should take care of the pathogen associated with the aspiration pneumonia. 2. Aggressive IV fluid. 3. We will follow up on clinical condition and culture to further adjust medication if needed. Thank you for this consultation. Will follow this patient along with you. MMODL / IJN: [id number] / MIKKI
--- NOTE | 2017-09-01 22:17 | P.DS ---
Providers Date of admission: 07/27/17 16:17 Expected date of discharge: 07/29/17 Attending physician: Davis Wyatt Consults: 07/27/17 16:17 Consult Physician Stat Consulting Provider: Cale De La Garza Consult Reason/Comments: Severe Sepsis Do you want consulting provider notified?: Already Contacted 07/27/17 22:57 Consult Physician Routine Consulting Provider: Norma Prajapati Consult Reason/Comments: afib rvr Do you want consulting provider notified?: Yes, Notify in am 07/29/17 00:22 Consult Physician Routine Consulting Provider: Ollie Griggs Consult Reason/Comments: positive blood culture Do you want consulting provider notified?: Yes, Notify in am Primary care physician: Megan Lisa Hospital Course: Discharge diagnosis Acute Hypoxemic respiratory failure. Septic shock Bibasilar pneumonia New onset atrial fibrillation with rapid ventricular response Severe alcoholic liver disease and chronic alcohol abuse Alcoholic cirrhosis Profound hypotension Severe metabolic acidosis Streptococcus pneumoniae bacteremia Multiorgan system failure Profound hypotension, despite maximal dose norepinephrine and vasopressin Hospital course Patient is a 62-year-old female with a known history of heavy alcohol abuse was found lying in bed soaked in her own urine. Patient was brought to the hospital we are EMS. Patient was very weak and fatigued and was having respiratory distress. Patient was started on broad-spectrum antibiotics due to sepsis and septic shock and was transferred to ICU due to respiratory distress and hypoxemia. Patient was also found have new onset atrial fibrillation. Patient was also given fluid boluses and patient remained on ventilator support. Patient was not this point to the maximal medical therapy. Patient is also on maximal dose of pressors support. Patient does have end-stage liver disease. Patient also hypoxemic and in septic shock. Patient was given 8-10 L altogether. Prognosis very poor. Otherwise pulmonary recommends to transfer the patient to tertiary care facility for further management upon discussion with the family. Discussed with the [facility] transfer team and patient was transferred. Patient's condition remained serious. Discharge medication reconciliation was done. Discharge physical examination and vitals reviewed Total time taken greater than 35 minutes including 18 minutes for counseling and coordination of care. Patient Condition at Discharge: Good Plan - Discharge Summary New Discharge Prescriptions: No Action Tolterodine Tartrate [Detrol LA] 2 mg PO DAILY Vitamin B Complex 1 cap PO DAILY Discharge Medication List Tolterodine Tartrate [Detrol LA] 2 mg PO DAILY 07/27/17 [History] Vitamin B Complex 1 cap PO DAILY 07/27/17 [History] Follow up Appointment(s)/Referral(s): Sloan Guzman MD [Primary Care Provider] - 1-2 days Discharge Disposition: TRANSFER TO [facility]ORT [facility]
== END 2017-07-29 14:31 | disposition short-term general hospital (02) | DRG 871 ==
LOC: EC 13:52 → 6ICU 16:17
PROVIDERS: ADMIT Hospitalist; ATTEND Hospitalist
PROC: 02HV33Z Insertion of Infusion Device into Superior Vena Cava, Percutaneous Approach (ICD-10-PCS; principal; 2017-07-27)
PROC: 5A1945Z Respiratory Ventilation, 24-96 Consecutive Hours (ICD-10-PCS; principal; 2017-07-27)
PROC: 0BH18EZ Insertion of Endotracheal Airway into Trachea, Via Natural or Artificial Opening Endoscopic (ICD-10-PCS; principal; 2017-07-27)
DX: A40.9 Streptococcal sepsis, unspecified (principal); G93.41 Metabolic encephalopathy; J96.01 Acute respiratory failure with hypoxia; R65.21 Severe sepsis with septic shock; E87.4 Mixed disorder of acid-base balance; J18.9 Pneumonia, unspecified organism; D69.6 Thrombocytopenia, unspecified; N17.9 Acute kidney failure, unspecified; E87.1 Hypo-osmolality and hyponatremia; N39.0 Urinary tract infection, site not specified; E83.51 Hypocalcemia; K70.30 Alcoholic cirrhosis of liver without ascites; I48.91 Unspecified atrial fibrillation; E86.0 Dehydration; F10.10 Alcohol abuse, uncomplicated; F17.200 Nicotine dependence, unspecified, uncomplicated; Z16.11 Resistance to penicillins; Z87.440 Personal history of urinary (tract) infections; Z79.899 Other long term (current) drug therapy
CPT/HCPCS: 31500; 36415; 36556; 36600; 51701; 70450; 71045; 80048; 80053; 80306; 81001; 82330; 82805; 83605; 83735; 84100; 84484; 85025; 85610; 85730; 87040; 87070; 87077; 87086; 87186; 87205; 87502; 93005; 93306; 94002; 94003; 96361; 96365; 96366; 96368; 96375; 99285